=== PATIENT | male | born 1965 | race Caucasian/White ===

== ENCOUNTER 2018-10-10 12:18 | Inpatient (IN) | payer SELFPAY ==
[2018-10-10] MEDS ORDERED: Enoxaparin Sodium 60 MG/0.6 ML SYRINGE ONE (14:23)
[2018-10-10 14:36] LABS: CKMB 2.6 ng/mL (0-6.6)
--- NOTE | 2018-10-10 15:06 | NM ---
RADIONUCLIDE VENTILATION PERFUSION LUNG SCAN: HISTORY: Dyspnea. FINDINGS: Ventilation images show symmetric uptake without significant air trapping. Perfusion images show a p oor perfusion gradient. No segmental or subsegmental perfusion mismatches. IMPRESSION: Exam is low probability for clinically significant pulmonary embolus. POS: [facility]
[2018-10-10] MEDS ORDERED: hydrALAZINE 20 MG/ML VIAL SLOW IVP PRN (15:35)
[2018-10-10] MEDS ORDERED: Labetalol HCl 100 MG/20 ML VIAL SLOW IVP PRN (15:35)
[2018-10-10] MEDS ORDERED: Dextrose 5% in Water 1,000 ML IV PRN (15:35)
[2018-10-10] MEDS ORDERED: Dextrose 50% Abboject 50 ML SYRINGE SLOW IVP PRN (15:35)
[2018-10-10] MEDS ORDERED: Acetaminophen 325 MG TAB PO PRN (15:35)
[2018-10-10] MEDS ORDERED: Acetaminophen 650 MG Suppository PR PRN (15:35)
[2018-10-10] MEDS ORDERED: Enalaprilat Dihydrate 1.25 MG/ML VIAL SLOW IVP PRN (15:35)
[2018-10-10] MEDS ORDERED: Ondansetron PF 4 MG/2 ML Vial IVP PRN (15:35)
[2018-10-10 16:48] LABS: Syphilis Antibody Nonreactive (Nonreactive); Syphilis Antibody Index 0.04 S/CO (<1.00 Non-Reactive)
--- NOTE | 2018-10-10 16:56 | HP ---
REASON FOR ADMISSION: Possible CVA, new onset CHF exacerbation, demand ischemia. HISTORY OF PRESENTING ILLNESS: The patient gives history of having upper respiratory infection and started taking Z-Chaitanya from the of this month. He in fact traveled to [facility] with his friends for vacation for six days. They left on the , came back on the . This was an 8-hour journey. The patient had a layover in [place] and then on to [facility] from there. No complaints of chest pain or palpitation. The patient has had cough and shortness of breath from yesterday evening. The went got him Mucinex, which did not seem to help. Around 6:30 this morning, he could not really talk and was drooling. He was in fact walking fine and he ate well last night too per . Currently, the patient is moving all extremities and is ambulating in the room here. He has trouble talking. He is very hoarse. He has no altered sensorium on his tongue, inner cheek, or anywhere on his body. No complaints of prior cardiac workup. PAST MEDICAL AND SURGICAL HISTORY: Diabetes mellitus type 2, hypertension, tobacco abuse, alcohol abuse. No prior surgical history. CURRENT MEDICATIONS: 1. Glipizide 10 mg twice daily. 2. Metformin 1000 mg twice daily. 3. Lisinopril 10 mg daily. ALLERGIES: ALLERGIC TO PENICILLIN. PERSONAL HISTORY: Smokes one pack a day. The patient has come down on his alcohol, drinking from 8 to 9 beers a day to 6-pack a day now. Does not abuse drugs. Lives with his . He does construction work. FAMILY HISTORY: Mother is living and has history of hypothyroidism. Father of mesothelioma and its complications in his 70s. CODE STATUS: Full. POWER OF RAIL LAYER: His . REVIEW OF SYSTEMS: CONSTITUTIONAL: Negative for weight loss or gain, ability to conduct usual activities. SKIN: Negative for rash, itching. EYES: Negative for double vision, pain. ENT/MOUTH: Negative for nose bleeding, neck stiffness, pain, tenderness. CARDIOVASCULAR: Negative for palpitations, dyspnea on exertion, orthopnea. RESPIRATORY: Negative for shortness of breath, wheezing, cough, hemoptysis, fever or night sweats. GASTROINTESTINAL: Negative for poor appetite, abdominal pain, heartburn, nausea , vomiting, constipation, or diarrhea. GENITOURINARY: Negative for urgency, frequency, dysuria, nocturia. MUSCULOSKELETAL: Negative for pain, swelling. NEUROLOGIC/PSYCHIATRIC: Negative for anxiety, depression. ALLERGY/IMMUNOLOGIC: Negative for skin rash, bleeding tendency. PHYSICAL EXAMINATION: GENERAL: The patient is a 53-year-old male, who is currently not in any acute distress. VITAL SIGNS: Blood pressure 122/84, pulse 98 per minute, respiratory rate 18 per minute, saturating 99% on room air, and temperature 98.2 degrees Fahrenheit. NECK: Supple. No elevated JVD. EYES: Extraocular muscles intact. Pupils are reacting to light. Oral cavity, mucous membranes are dry. No exudates or congestion. CARDIOVASCULAR: S1 and S2 heard. Regular rhythm. RESPIRATORY: Air entry 1+ bilateral. Scattered rhonchi plus no rales or wheezes. ABDOMEN: Soft. Bowel sounds heard. No tenderness, rigidity, or guarding. EXTREMITIES: No peripheral edema or calf tenderness. VASCULAR: Peripheral pulses 1+ bilateral. No ischemic ulcerations or gangrene. CENTRAL NERVOUS SYSTEM: The patient has 7th cranial nerve palsy on the left. He also has deviation of his tongue. The patient has hoarseness. Motor system in all four extremities is intact with 5/5 strength. Reflexes are 2+ bilateral. Babinski is equivocal. Sensory system is grossly normal to touch and pinprick, both sides. Gait was normal with no ataxia. PSYCHIATRIC: No obvious hallucinations or delusions. LABORATORY DATA: EKG done shows normal sinus rhythm at 95 beats per minute. There is LBBB seen with LVH strain pattern. QRS duration is [address] angio of brain done showed no evidence of hemodynamically significant stenosis seen in the neck or the brain. V/Q scan showed low probability for PE. Chest x-ray done showed pulmonary vascular congestion. BNP is 2691. Troponin I 0.06, CK-MB 2.6, albumin 4.1, lipase 28, serum glucose 404, BUN 24, creatinine 1.5. Serum bicarb is 15. White count of 5, H and H 12 and 36, platelet count 222, MCV is 92 with 69% neutrophils. CLINICAL IMPRESSION AND PLAN: The patient will be admitted to stroke unit for possible brainstem stroke with cranial nerve palsies. He also has new onset congestive heart failure. The patient has never had prior cardiac workup. We will obtain echo with 2D Doppler for LV function. We will also place him on banana bag in view of his history of heavy alcohol abuse. He will be on rectal aspirin, Coreg, Lipitor. We will await speech therapist's clearance for oral diet. If the patient's MRI is normal, we will obtain ENT consultation to rule out vocal cord paralysis. Respiratory viral pathogen PCR will be obtained in view of the patient's recent travel and his intake of Z-Chaitanya prior to leaving [place] TSH screen along with lipid profile will be obtained in the morning. 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 We will consult Dr. Rao for Cardiology and Dr. Rodriguez, who is on-call for Neurology. I have given complete updates to the patient and his at bedside. Job ID: [id number] [facility]
[2018-10-10] MEDS ORDERED: Multivitamins, Adult 10 ML, Folic Acid 1 MG, Thiamine HCl 100 MG in Dextrose 5 %-0.45 %... IV SCH (18:00)
[2018-10-10] MEDS: Multivitamins, Adult 10 ML, Folic Acid 1 MG, Thiamine HCl 100 MG in Dextrose 5 %-0.45 %... IV SCH (18:00)
[2018-10-10 18:04] LABS: ANA Symphony (Qualitative) Negative (Negative); ANA Symphony (Quantitative) 0.1 Ratio (< 0.7 Negative); dsDNA IgG Antibody 1.1 IU/mL (<10 Negative)
[2018-10-10 18:53] LABS: Amphetamine Not Detected (NotDetected); Barbiturates Screen Not Detected (NotDetected); Benzodiazepine Screen Not Detected (NotDetected); Cocaine Metabolite Screen Not Detected (NotDetected); Medtox Control Line Valid? VALID (VALID); Medtox Reader # READER 4; Methadone Not Detected (NotDetected); Methamphetamine Not Detected (NotDetected); Opiate Screen Not Detected (NotDetected); Oxycodone Screen Not Detected (NotDetected); Phencyclidine (PCP) Not Detected (NotDetected); THC/Cannabinoid Screen Not Detected (NotDetected); Tricyclic Screen Not Detected (NotDetected)
[2018-10-10] MEDS: HumaLOG 300 UNITS/3 ML VIAL SC PRN (19:03)
[2018-10-10] MEDS: Atorvastatin Calcium 40 MG TAB PO SCH (21:06)
[2018-10-10] MEDS: Carvedilol 3.125 MG TAB PO SCH (21:06)
[2018-10-10] MEDS: Famotidine/PF 20 mg/2ml Vial SLOW IVP SCH (21:58)
--- NOTE | 2018-10-10 23:37 | CON ---
DATE OF CONSULTATION: 10/10/2018 TYPE OF CONSULTATION: Neurology CONSULTING PHYSICIAN: Hospitalist Service. IMPRESSION: 1. Probable lower brainstem stroke. 2. Diabetes. 3. Hypertension. 4. Aspirin failure. PLAN: 1. Add Plavix. 2. Low-dose statin. 3. Speech therapy to monitor his swallowing situation to determine whether a PEG tube is necessary. 4. Carotid ultrasound. 5. Echocardiogram. HOSPITAL COURSE: Mr. Damon is a 53-year-old man with a past history of diabetes and hypertension. He awoke with findings that he was having trouble speaking. He started having trouble handling his saliva and had to mop his mouth to keep from drooling. He denied any nausea, vomiting or vertigo. He did have some mild headache. He has not noticed any lateralized weakness or numbness. He came in and had a CT and CTA, both of which were unremarkable. LABORATORY STUDIES: Show a sedimentation rate of 29, glucose of 323, and RPR is nonreactive. Vital signs have otherwise been stable and afebrile. PAST MEDICAL HISTORY: As listed above. ALLERGIES: PENICILLIN. SOCIAL HISTORY: He quit smoking a couple of weeks ago. FAMILY HISTORY: Noncontributory. MEDICATION LIST: Reviewed. REVIEW OF SYSTEMS: No complaint of chest pain, shortness of breath, abdominal pain, lateralized weakness or numbness. PHYSICAL EXAMINATION: VITAL SIGNS: Blood pressure 127/89, pulse 96, respirations 16, temperature 97.9. HEENT: Pupils equal and reactive. Conjunctivae clear. Oropharynx clear. NECK: Supple. EXTREMITIES: No cyanosis. NEUROLOGIC: He is alert and cooperative. His speech was fluent with a markedly breath equality. His cranial nerve exam showed a flattening of left nasolabial fold. His tongue protruded to the left. His palate elevated weakly, but into the midline. Sensation in the face was equal. No nystagmus was noted. Motor exam showed good strength bilaterally. There is no fix or drift. Sensation was equal to touch. Plantar response was downgoing on the right and equivocal on the left. He can walk independently. IMAGING: EKG shows a left bundle-branch block. SUMMARY: This is a middle-aged man with an acute small vessel stroke in the brainstem. He failed aspirin. Therefore, I would advance his treatment as noted above. Hopefully, he will make a rapid recovery and not need a PEG tube. Job ID: [id number]
[2018-10-11] MEDS: HumaLOG 300 UNITS/3 ML VIAL SC PRN ×4 (02:23→18:39)
--- NOTE | 2018-10-11 04:19 | CON ---
DATE OF CONSULTATION: HISTORY OF PRESENT ILLNESS: Héctor Damon is a 53-year-old white male who over the last 2 to 3 weeks has been having cough and increased shortness of breath. He has taken a Z-Chaitanya, but continues to have cough and shortness of breath. He has had PND and orthopnea. He has had to sleep in a chair. He recently was on a flight from [place] to [facility]. At 06:30 this morning, he was having trouble talking and was drooling out of the left side of his mouth. He was seen in the emergency room in [place] and ultimately transferred here. He denies any chest discomfort. PAST MEDICAL HISTORY: Diabetes, hypertension, smoker, and ETOH abuse. OPERATIONS: None. CURRENT MEDICATIONS: 1. Glipizide 10 mg b.i.d. 2. Metformin 1000 mg b.i.d. 3. Lisinopril 10 mg daily. ALLERGIES: PENICILLIN. SOCIAL HISTORY: He smokes 1 pack per day, but he states that he quit last week. He drinks a 6 pack of beer per day, although he apparently in the past would drink 8 to 9 beers per day. He does construction work. FAMILY HISTORY: No family history of coronary artery disease. REVIEW OF SYSTEMS: A 12-point review of systems otherwise unremarkable except for the shortness of breath and neurological symptoms as described above. PHYSICAL EXAMINATION: VITAL SIGNS: Blood pressure 127/89, pulse of 96. HEENT: PERRL. NECK: Supple. CHEST: Clear. CARDIAC: S1 and S2 normal without any S3, S4, or murmurs. Carotid upstrokes normal without bruits. ABDOMEN: Normal bowel sounds without tenderness or organomegaly. EXTREMITIES: Revealed no clubbing, cyanosis, or edema. NEUROLOGICAL: The patient has left facial droop, but otherwise appears to have normal strength. SKIN: Warm and dry. LABORATORY DATA: EKG revealed sinus tachycardia with left atrial enlargement and left bundle branch block. Chest x-ray revealed increased pulmonary vascularity and small bilateral pleural effusions. Hemoglobin 12.4, hematocrit 36.7, white count 5700, platelets 222,000. Sodium 133, potassium 4.4, chloride 105, carbon dioxide 15, BUN 24, creatinine 1.50, glucose 404. Troponin I 0.070. BNP 2691.5. Urine drug screen is negative. V/Q scan was low probability for PE. IMPRESSION: 1. Probable cardiomyopathy with symptoms compatible with this as well as significantly elevated BNP and findings on chest x-ray of heart failure. 2. ETOH abuse. 3. Smoker. 4. Hypertension. 5. Diabetes. 6. Stroke. 7.Chronic kidney disease vs FREDI. PLAN: The patient will be started on carvedilol 3.125 b.i.d. He will continue to be diuresed. Echocardiogram will be performed to assess left ventricular function. He certainly may have coronary artery disease with multiple cardiac risk factors. Lipid profile will be obtained. I will continue to follow the patient with you. Job ID: [id number] [facility]
[2018-10-11 05:42] LABS: #Basophils 0.1 thou/uL (0.0-0.2); #Eosinphils 0.1 thou/uL (0.0-0.7); #Lymphocytes 1.3 thou/uL (1.20-3.40); #Monocytes 0.5 thou/uL (0.11-0.59); #Neutrophils 2.2 thou/uL (1.40-6.50); %Basophils 1.3 % (0.0-1.0); %Eosinophils 2.1 % (0.0-10.0); %Lymphocytes 31.8 % (21.0-51.0); %Monocytes 11.6 % (0.0-10.0); %Neutrophils 53.2 % (42.0-75.0); Hemoglobin 12.4 g/dL (14.0-18.0); Mean Corpuscular HGB CONC 34.2 g/dL (32.0-36.0); Mean Corpuscular Hemoglobin 31.9 pg (27.0-31.0); Mean Corpuscular Volume 93.3 fL (78.0-98.0); Mean Platelet Volume 8.4 fL (7.4-10.4); Platelet Count 233 thou/uL (130-400); RBC Distribution Width 11.7 % (11.5-14.5); Red Blood Cell (RBC) Count 3.87 mill/uL (4.70-6.10); White Blood Cell (WBC) Count 4.1 thou/uL (4.8-10.8)
[2018-10-11 06:02] LABS: Anion Gap 15 mmol/L (10-20); BUN (Urea Nitrogen) 24 mg/dL (8.4-25.7); Calc. Creatinine Clearance 39 mL/min (70-130); Calcium 9.7 mg/dL (7.8-10.44); Carbon Dioxide 21 mmol/L (22-29); Cardiac Risk 4.7 (Less than 4.5); Chloride 107 mmol/L (98-107); Cholesterol 188 mg/dl (< 200 Desired); Estimated GFR-MDRD 47; Glucose 231 mg/dL (70-105); HDL Cholesterol 40 mg/dL (>60 Neg Risk); LDL Cholesterol, Calculated 134 mg/dL; Potassium 4.1 mmol/L (3.5-5.1); Sodium 139 mmol/L (136-145); Triglycerides 70 mg/dL (Less than 150); Uric Acid 7.1 mg/dL (3.5-7.2)
[2018-10-11] MEDS: Furosemide 40 MG/4 ML VIAL SLOW IVP SCH ×2 (06:09→14:27)
[2018-10-11] MEDS: Carvedilol 3.125 MG TAB PO SCH ×2 (08:33→21:04)
[2018-10-11] MEDS: Famotidine/PF 20 mg/2ml Vial SLOW IVP SCH ×2 (08:33→21:03)
[2018-10-11] MEDS: Enoxaparin Sodium 40 MG/0.4 ML SYRINGE SC SCH (08:33)
[2018-10-11] MEDS: Aspirin 300 MG Suppository PR SCH (08:33)
--- NOTE | 2018-10-11 09:51 | MRI ---
MRI BRAIN WITHOUT CONTRAST: HISTORY: Speech difficulty, stroke. FINDINGS: There is small- to moderate-sized area of restricted diffusion in the right MCA territory consistent with acute infarction. No hemorrhage, midline shift, or abnormal extraaxial fluid collections are se en. The ventricular size is appropriate and the basilar cisterns are patent. There is fluid in the mastoid air cells. IMPRESSION: Small-moderate sized acute right middle cerebral artery infarction. POS: [facility]
--- NOTE | 2018-10-11 15:41 | RAD ---
MODIFIED BARIUM SWALLOW IN THE PRESENCE OF SPEECH THERAPIST: 10/11/18 HISTORY: Dysphagia, right MCA infarction. FINDINGS/IMPRESSION: There is karyn aspiration. Residua is seen in the vallecula and piriform sinuses. Please see recommendation of the speech therapist for further management. POS: [facility]
--- NOTE | 2018-10-11 16:02 | PDOC.PN ---
- Subjective Encounter Start Date: 10/11/18 Encounter Start Time: 10:30 Subjective: is able to talk some but has husky voice still -: no trouble breathing, still has facial droop -: no new weakness in extremities, is amb in room, at bedside - Objective Resuscitation Status - Order Detail: 10/10/18 15:28 Resuscitation Status Routine Resuscitation Status: FULL: Full Resuscitation MAR Reviewed: Yes Vital Signs & Weight: Vital Signs (12 hours) Temp Pulse Pulse Pulse Resp BP BP 10/11/18 15:53 98.2 F 92 16 10/11/18 12:00 97.7 F 91 20 10/11/18 11:12 85 16 10/11/18 09:30 95 95 119/79 106/70 10/11/18 08:45 97.5 F L 91 20 10/11/18 08:44 97 84 121/80 123/79 10/11/18 08:40 BP Pulse Ox 10/11/18 15:53 112/73 100 10/11/18 12:00 116/80 97 10/11/18 11:12 10/11/18 09:30 10/11/18 08:45 123/79 98 10/11/18 08:44 10/11/18 08:40 98 Weight Admit Weight 113 lb 1.6 oz Weight 108 lb 9.6 oz I&O: 10/10/18 10/11/18 10/12/18 06:59 06:59 06:59 Intake Total 799 Output Total 450 300 Balance 349 -300 Result Diagrams: 10/11/18 05:19 10/11/18 05:19 Additional Labs: Accuchecks 10/11/18 10/11/18 10/11/18 12:14 04:43 00:19 POC Glucose 254 H 221 H 222 H 10/10/18 18:16 POC Glucose 284 H Phys Exam - Physical Examination HEENT: PERRLA, moist MMs Neck: no JVD, supple Respiratory: no wheezing, no rales Cardiovascular: RRR, no significant murmur Gastrointestinal: soft, non-tender, positive bowel sounds Musculoskeletal: no edema, pulses present Neurological: moves all 4 limbs 7th nerve palsy, dysphagia, hoarseness, no other motor deficits Psychiatric: normal affect, A&O x 3 Dx/Plan (1) Acute CVA (cerebrovascular accident) Code(s): I63.9 - CEREBRAL INFARCTION, UNSPECIFIED Status: Acute (2) Hoarseness Status: Acute (3) CHF exacerbation Code(s): I50.9 - HEART FAILURE, UNSPECIFIED Status: Acute Qualifiers: Heart failure type: systolic Qualified Code(s): I50.23 - Acute on chronic systolic (congestive) heart failure Comment: ef of 15% (4) Cardiomyopathy Code(s): I42.9 - CARDIOMYOPATHY, UNSPECIFIED Status: Suspected Qualifiers: Cardiomyopathy type: unspecified Qualified Code(s): I42.9 - Cardiomyopathy , unspecified (5) Alcohol abuse Code(s): F10.10 - ALCOHOL ABUSE, UNCOMPLICATED Status: Chronic (6) Tobacco abuse Code(s): Z72.0 - TOBACCO USE Status: Chronic (7) Dyslipidemia Code(s): E78.5 - HYPERLIPIDEMIA, UNSPECIFIED Status: Acute (8) HTN (hypertension) Code(s): I10 - ESSENTIAL (PRIMARY) HYPERTENSION Status: Chronic Qualifiers: Hypertension type: essential hypertension Qualified Code(s): I10 - Essential (primary) hypertension (9) Dysphagia Code(s): R13.10 - DYSPHAGIA, UNSPECIFIED Status: Acute Qualifiers: Dysphagia type: unspecified Qualified Code(s): R13.10 - Dysphagia, unspecified (10) DM type 2 (diabetes mellitus, type 2) Status: Chronic Qualifiers: Diabetes mellitus telephone service adviser insulin use: without senior care use Diabetes mellitus complication status: with unspecified complications Qualified Code(s) : E11.8 - Type 2 diabetes mellitus with unspecified complications - Plan on aspirin rectal -: await ct neck and chest results -: MRI shows ac right mca infarct -: ef is very low on echo, will need further w/u in 8 weeks -: mod ba swallow showed aspiration, is npo for now, likely peg in am * . Review of Systems - Medications/Allergies Allergies/Adverse Reactions: Allergies Allergy/AdvReac Type Severity Reaction Status Date / Time Penicillins Allergy Verified 10/10/18 16:42 Medications: Current Medications Acetaminophen (Tylenol) 650 mg PO Q4H PRN PRN Reason: Headache/Fever/Mild Pain (1-3) Acetaminophen (Tylenol) 650 mg [place] Q4H PRN PRN Reason: Headache/Fever/Mild Pain (1-3) Albuterol/Ipratropium (Duoneb) 3 ml NEB [id number] [facility] Last Admin: 10/11/18 11:12 Dose: 3 ml Aspirin (Aspirin) [address] [facility] Last Admin: 10/11/18 08:33 Dose: 300 mg Atorvastatin Calcium (Lipitor) [address] [facility] Last Admin: 10/10/18 21:06 Dose: Not Given Carvedilol (Coreg) 3.[address] [facility] Last Admin: 10/11/18 08:33 Dose: 3.125 mg Dextrose/Water (Dextrose 50%) 25 gm SLOW IVP PRN PRN PRN Reason: Hypoglycemia Enalaprilat (Vasotec) 1.25 mg SLOW IVP Q6H PRN PRN Reason: BP > 220/110 Enoxaparin Sodium (Lovenox) [address] [facility] Last Admin: 10/11/18 08:33 Dose: 40 mg Famotidine (Pepcid) 20 [address]P Q12[address] [facility] Last Admin: 10/11/18 08:33 Dose: 20 mg Furosemide (Lasix) 40 mg SLOW IVP 0600,1400 [facility] Last Admin: 10/11/18 14:27 Dose: 40 mg Glucagon (Glucagon) 1 mg IM PRN PRN PRN Reason: Hypoglycemia Hydralazine HCl (Apresoline) 10 mg SLOW IVP Q4H PRN PRN Reason: BP > 220/110 Dextrose/Water (D5w) 1,000 mls @ 0 mls/hr IV .Q0M PRN PRN Reason: Hypoglycemia Multivitamins 10 ml/ Folic Acid 1 mg/ Thiamine HCl 100 mg / Dextrose/Sodium Chloride 1,011.2 mls @ 40 mls/hr IV 1800 [facility] Stop: 10/13/18 17:59 Last Admin: 10/10/18 18:00 Dose: 1,011.2 mls Levofloxacin 500 mg/ Device 100 mls @ 100 mls/hr IVPB Q24HR [facility] Last Admin: 10/10/18 18:00 Dose: 100 mls Insulin Human Lispro (Humalog) 0 units SC .MODERATE SLIDING SC PRN PRN Reason: Moderate Correctional Scale Last Admin: 10/11/18 12:33 Dose: 6 unit Labetalol HCl (Normodyne) 20 mg SLOW IVP Q1H PRN PRN Reason: BP > 220/110 Ondansetron HCl (Zofran) 4 mg IVP Q6H PRN PRN Reason: Nausea/Vomiting Sodium Chloride (Flush - Normal Saline) 10 ml IVF PRN PRN PRN Reason: Saline Flush Last Admin: 10/11/18 08:33 Dose: 10 ml
--- NOTE | 2018-10-11 16:41 | CT ---
POSTCONTRAST SOFT TISSUE NECK CT: 10/11/18 HISTORY: Vocal cord paralysis. Smoking history. COMPARISON: None. TECHNIQUE: Postcontrast soft tissue neck CT is performed in the axial plane. Reformatted images are submitted fo r interpretation. FINDINGS: The visualized brain parenchyma and orbits are unremarkable. Adequate aeration of the sinuses and mas toid air cells. Oral cavity is unremarkable. Midline fatty raphae of the tongue is preserved. Epiglot tis has a normal caliber. Pre-epiglottic fat is preserved. Symmetric attenuation of the submandibular and parotid glands. Thyroid gland is unremarkable. Symmetric attenuation of the sternocleidomastoid muscles. No evidence of lymphadenopathy by size crit eria. Great vessels of the neck, cervical spine, upper mediastinum and lung apices are unremarkable. There is symmetric appearance of the piriform sinuses. Additionally, The false and true vocal cords have ap propriate attenuation. IMPRESSION: 1. No CT evidence of a mass within the aerodigestive tract. 2. No evidence of lymphadenopathy by size criteria. POS: [facility]
--- NOTE | 2018-10-11 17:05 | CT ---
CHEST CT WITH CONTRAST: 10/11/18 HISTORY: Difficulty swallowing. Vocal cord paralysis. Evaluate for mediastinal mass. COMPARISON: None. TECHNIQUE: Postcontrast chest CT is performed in the axial plane. Coronal reformatted images are submitted for i nterpretation. FINDINGS: Trachea and central bronchi are patent. No masses or consolidation in the lung parenchyma. There is a trace left and a small right sided pleural effusion. Adjacent parenchymal changes may be due to scar or atelectasis. There is no pneumothorax. No mediastinal mass, lymphadenopathy or hematoma. Heart size is within normal limits. No pericardial effusion. There are coronary calcifications. The thoracic aorta and upper abdominal aorta has a don l caliber. No periaortic fat stranding. There is vicarious excretion of contrast into the gallbladder . The visualized upper solid organs and alimentary canal are unremarkable. No lytic or blastic lesions in the osseous structures. IMPRESSION: 1. No mediastinal mass or hematoma. 2. Small bilateral effusions with probable scar/atelectasis in the lung bases. POS: [facility]
[2018-10-11] MEDS: Multivitamins, Adult 10 ML, Folic Acid 1 MG, Thiamine HCl 100 MG in Dextrose 5 %-0.45 %... IV SCH (21:04)
[2018-10-11] MEDS: Atorvastatin Calcium 40 MG TAB PO SCH (21:04)
--- NOTE | 2018-10-12 01:06 | CON ---
DATE OF CONSULTATION: 10/11/2018 REASON FOR CONSULTATION: Dysphagia, abnormal swallowing study. CONSULTING PHYSICIAN: Salvatore Durham MD HISTORY OF PRESENT ILLNESS: The patient is a 53-year-old male with past medical history of diabetes, hypertension, alcohol and tobacco abuse, who initially presented with complaints of dysphagia and facial drooping concerning for acute cerebrovascular accident. The patient initially presented on October 10, 2018, with complaints of dysphagia characterized as his inability to enunciate his words as well as facial drooping resulting in drooling on that morning at 6:30 a.m. He denies any deficits of both the upper and lower extremities, but given his change in symptoms prompted evaluation in the ER. Upon evaluation in the ER, he subsequently underwent imaging of the brain, which showed a small moderate-sized acute right middle cerebral artery infarction consistent with cerebrovascular accident. He was admitted to the Stroke Unit for further evaluation with a bedside swallow study consistent with possible aspiration. He subsequently underwent a modified barium swallow on October 11, 2018, which showed karyn aspiration on the examination with increasing residuals seen within the valleculae and pyriform sinuses contributing to his karyn aspiration. At this time, the patient states that he is doing well with no other problems or events. Currently, denies any nausea, vomiting, fevers, chills, abdominal pain, weight loss, GI bleeding, diarrhea, constipation, or odynophagia. However, he does continue to have aphasia, mild sore throat, and difficulty swallowing, but does not manifest itself as increased coughing or gagging episodes. REVIEW OF SYSTEMS: A 10-category review of systems was obtained with all responses negative except for the pertinent positives as listed in the HPI. PAST MEDICAL HISTORY: As per HPI. PAST SURGICAL HISTORY: None. FAMILY HISTORY: Denies any GI malignancies. SOCIAL HISTORY: Smokes approximately 1 pack per day as well as drinking anywhere between 6 to 9 beers daily. Denies any illicit drug use. OUTPATIENT MEDICATIONS: Reviewed. ALLERGIES: PENICILLIN. PHYSICAL EXAMINATION: VITAL SIGNS: Temperature 98.2, pulse 96, blood pressure 112/73, respiratory rate 16, saturating 100% on room air. GENERAL: The patient is lying in bed, in no acute distress. Alert and oriented x4. HEENT: Neck is supple. No JVD or scleral icterus noted. Mild facial drooping was noted on the left with flattening of the nasolabial crease. CARDIOVASCULAR: Regular rate and rhythm with no discernible murmurs, gallops, or rubs. RESPIRATORY: Clear to auscultation bilaterally with no discernible wheezes or rales. ABDOMEN: Normoactive bowel sounds. Soft, nontender, and nondistended. EXTREMITIES: No cyanosis, clubbing, or edema. LABORATORY DATA: CBC with a white blood cell count of 4.1, hemoglobin 12.4, hematocrit 36.1, platelets 233. Chemistry with a sodium of 139, potassium 4.1, chloride 107, CO2 of 21, BUN 24, creatinine 1.56, glucose 231. IMAGING DATA: Modified barium swallow obtained on October 11, 2018, showed presence of gross/karyn aspiration with increased residual seen within the vallecula and pyriform sinuses consistent with oropharyngeal dysphagia. CT of the neck and soft tissues obtained on October 11, 2018, did not show any evidence of a mass within the aerodigestive tract and no evidence of lymphadenopathy. ASSESSMENT AND PLAN: The patient is a 53-year-old male with past medical history of diabetes, hypertension, alcohol and tobacco abuse, presenting with acute middle cerebral artery infarction and resultant dysphagia. 1. Dysphagia. The patient is presenting with the acute onset of left facial drooping and drooling with imaging findings consistent with middle cerebral artery cerebrovascular accident. Swallow study obtained at bedside yesterday showed possibility of aspiration with modified barium swallow study today showing gross aspiration of food consistent with oropharyngeal dysphagia. Given the evidence of karyn aspiration on the imaging studies, he is a good candidate for PEG tube placement. However, upon conferring with the patient and talking about alternatives, he would like to hold on PEG tube placement for at least the next 24 to 48 hours to see if he regains any additional swallowing function. He would like to participate in swallowing exercises in an attempt to strengthen the muscles for his swallowing. However, he also realizes that if he is unable to regain any significant ability within the next 24 to 48 hours, that a PEG tube would be recommended and he is amenable to this particular modality. RECOMMENDATIONS: 1. Would continue the patient n.p.o. status given the evidence of karyn aspiration on modified barium swallow study. 2. Would recommend PEG tube placement given evidence of karyn aspiration on modified barium swallow study. However, we will hold on this per patient's preference and potentially plan for PEG tube placement on Sunday or Sunday morning. 3. We will continue to follow. Please call with any questions. Job ID: [id number]
[2018-10-12] MEDS: HumaLOG 300 UNITS/3 ML VIAL SC PRN ×3 (03:32→17:44)
[2018-10-12] MEDS: Furosemide 40 MG/4 ML VIAL SLOW IVP SCH (06:26)
[2018-10-12 07:20] LABS: Chloride 106 mmol/L (98-107); Potassium 4.1 mmol/L (3.5-5.1); Sodium 141 mmol/L (136-145)
[2018-10-12 07:21] LABS: Calcium 9.8 mg/dL (7.8-10.44); Glucose 242 mg/dL (70-105)
[2018-10-12 07:23] LABS: Carbon Dioxide 18 mmol/L (22-29)
[2018-10-12 07:24] LABS: Calc. Creatinine Clearance 27 mL/min (70-130); Estimated GFR-MDRD 32
[2018-10-12 07:25] LABS: BUN (Urea Nitrogen) 32 mg/dL (8.4-25.7)
[2018-10-12] MEDS: Carvedilol 3.125 MG TAB PO SCH ×2 (08:44→21:39)
[2018-10-12] MEDS: Aspirin 300 MG Suppository PR SCH (08:44)
[2018-10-12] MEDS: Famotidine/PF 20 mg/2ml Vial SLOW IVP SCH ×2 (08:44→21:38)
[2018-10-12] MEDS: Enoxaparin Sodium 40 MG/0.4 ML SYRINGE SC SCH (08:44)
[2018-10-12] MEDS: Insulin Glargine 10 UNITS in Pre-Filled Syringe 1 EACH SC SCH (08:45)
[2018-10-12 10:48] LABS: Anion Gap 21 mmol/L (10-20)
--- NOTE | 2018-10-12 11:21 | PDOC.PN ---
- Subjective Encounter Start Date: 10/12/18 Encounter Start Time: 08:40 Subjective: no new complaints -: is ambulating, no sob -: is doing speech exercises, at bedside - Objective Resuscitation Status - Order Detail: 10/10/18 15:28 Resuscitation Status Routine Resuscitation Status: FULL: Full Resuscitation MAR Reviewed: Yes Vital Signs & Weight: Vital Signs (12 hours) Temp Pulse Pulse Pulse Resp BP BP 10/12/18 09:32 100 99 103/69 109/75 10/12/18 07:50 10/12/18 07:33 97.7 F 100 14 10/12/18 04:35 98.6 F 98 20 10/12/18 02:00 98.1 F 96 20 10/11/18 23:43 BP Pulse Ox Pulse Ox Pulse Ox 10/12/18 09:32 96 99 10/12/18 07:50 97 10/12/18 07:33 118/76 100 10/12/18 04:35 105/66 99 10/12/18 02:00 119/73 98 10/11/18 23:43 97 Weight Admit Weight 113 lb 1.6 oz Weight 102 lb 3.2 oz I&O: 10/11/18 10/12/18 10/13/18 06:59 06:59 06:59 Intake Total 799 1030 Output Total 450 500 350 Balance 349 530 -350 Result Diagrams: 10/11/18 05:19 10/12/18 06:41 Additional Labs: Accuchecks 10/12/18 10/12/18 10/11/18 05:52 03:11 18:34 POC Glucose 238 H 292 H 206 H 10/11/18 10/11/18 16:16 12:14 POC Glucose 169 H 254 H Phys Exam - Physical Examination HEENT: PERRLA, moist MMs Neck: no JVD, supple Respiratory: no wheezing, no rales Cardiovascular: RRR, no significant murmur Gastrointestinal: soft, non-tender, positive bowel sounds Musculoskeletal: no edema, pulses present Neurological: moves all 4 limbs 7th nerve palsy, dysphagia with likely involvement of pharyngeal muscles Psychiatric: normal affect, A&O x 3 Dx/Plan (1) Acute CVA (cerebrovascular accident) Code(s): I63.9 - CEREBRAL INFARCTION, UNSPECIFIED Status: Acute (2) Hoarseness Status: Acute (3) CHF exacerbation Code(s): I50.9 - HEART FAILURE, UNSPECIFIED Status: Acute Qualifiers: Heart failure type: systolic Qualified Code(s): I50.23 - Acute on chronic systolic (congestive) heart failure Comment: ef of 15% (4) Cardiomyopathy Code(s): I42.9 - CARDIOMYOPATHY, UNSPECIFIED Status: Suspected Qualifiers: Cardiomyopathy type: unspecified Qualified Code(s): I42.9 - Cardiomyopathy , unspecified (5) Alcohol abuse Code(s): F10.10 - ALCOHOL ABUSE, UNCOMPLICATED Status: Chronic (6) Tobacco abuse Code(s): Z72.0 - TOBACCO USE Status: Chronic (7) Dyslipidemia Code(s): E78.5 - HYPERLIPIDEMIA, UNSPECIFIED Status: Acute (8) HTN (hypertension) Code(s): I10 - ESSENTIAL (PRIMARY) HYPERTENSION Status: Chronic Qualifiers: Hypertension type: essential hypertension Qualified Code(s): I10 - Essential (primary) hypertension (9) Dysphagia Code(s): R13.10 - DYSPHAGIA, UNSPECIFIED Status: Acute Qualifiers: Dysphagia type: unspecified Qualified Code(s): R13.10 - Dysphagia, unspecified (10) DM type 2 (diabetes mellitus, type 2) Status: Chronic Qualifiers: Diabetes mellitus shelter insulin use: without long distance operator use Diabetes mellitus complication status: with unspecified complications Qualified Code(s) : E11.8 - Type 2 diabetes mellitus with unspecified complications (11) FREDI (acute kidney injury) Code(s): N17.9 - ACUTE KIDNEY FAILURE, UNSPECIFIED Status: Acute Comment: sec to diuresis on top of likely ckd2-3 - Plan discussed extensively with pt and at bedside -: they want to try and see if his swallowing improves in next 24-36hrs -: awaiting zoll rep to come talk to family and see if they can afford life ve -: -st, will increase iv fluids, dc lasix due to fredi -: peg either linda or sunday per patients wishes * . He will need to apply for health insurance now before the enrollment ends for next year, d/w patient and . Oral meds for heart failure when he can swallow/after peg. Review of Systems - Medications/Allergies Allergies/Adverse Reactions: Allergies Allergy/AdvReac Type Severity Reaction Status Date / Time Penicillins Allergy Verified 10/10/18 16:42 Medications: Current Medications Acetaminophen (Tylenol) 650 mg PO Q4H PRN PRN Reason: Headache/Fever/Mild Pain (1-3) Acetaminophen (Tylenol) 650 mg AR Q4H PRN PRN Reason: Headache/Fever/Mild Pain (1-3) Albuterol/Ipratropium (Duoneb) 3 ml NEB [id number] [facility] Last Admin: 10/12/18 09:27 Dose: Not Given Aspirin (Aspirin) 300 mg AR DAILY [facility] Last Admin: 10/12/18 08:44 Dose: 300 mg Atorvastatin Calcium (Lipitor) 40 mg PO HS [facility] Last Admin: 10/11/18 21:04 Dose: Not Given Carvedilol (Coreg) 3.125 mg PO BID [facility] Last Admin: 10/12/18 08:44 Dose: 3.125 mg Dextrose/Water (Dextrose 50%) 25 gm SLOW IVP PRN PRN PRN Reason: Hypoglycemia Enalaprilat (Vasotec) 1.25 mg SLOW IVP Q6H PRN PRN Reason: BP > 220/110 Enoxaparin Sodium (Lovenox) 40 mg SC 0900 [facility] Last Admin: 10/12/18 08:44 Dose: 40 mg Famotidine (Pepcid) 20 mg SLOW IVP Q12HR [facility] Last Admin: 10/12/18 08:44 Dose: 20 mg Glucagon (Glucagon) 1 mg IM PRN PRN PRN Reason: Hypoglycemia Hydralazine HCl (Apresoline) 10 mg SLOW IVP Q4H PRN PRN Reason: BP > 220/110 Dextrose/Water (D5w) 1,000 mls @ 0 mls/hr IV .Q0M PRN PRN Reason: Hypoglycemia Multivitamins 10 ml/ Folic Acid 1 mg/ Thiamine HCl 100 mg / Dextrose/Sodium Chloride 1,011.2 mls @ 40 mls/hr IV 1800 [facility] Stop: 10/13/18 17:59 Last Admin: 10/11/18 21:04 Dose: 1,011.2 mls Insulin Glargine 10 units/ (Miscellaneous Medication) 0.1 mls @ 0 mls/hr SC QAM [facility] Last Admin: 10/12/18 08:45 Dose: 0.1 mls Insulin Human Lispro (Humalog) 0 units SC .MODERATE SLIDING SC PRN PRN Reason: Moderate Correctional Scale Last Admin: 10/12/18 06:19 Dose: 4 unit Labetalol HCl (Normodyne) 20 mg SLOW IVP Q1H PRN PRN Reason: BP > 220/110 Ondansetron HCl (Zofran) 4 mg IVP Q6H PRN PRN Reason: Nausea/Vomiting Sodium Chloride (Flush - Normal Saline) 10 ml IVF PRN PRN PRN Reason: Saline Flush Last Admin: 10/11/18 08:33 Dose: 10 ml
--- NOTE | 2018-10-12 13:58 | EKG ---
Test Reason : SOB, STROKE SYMPTOMS Blood Pressure : / mmHG Vent. Rate : 095 BPM Atrial Rate : 095 BPM P-R Int : 118 ms QRS Dur : 136 ms QT Int : 400 ms P-R-T Axes : 062 132 088 degrees QTc Int : 502 ms Normal sinus rhythm Possible Left atrial enlargement Non-specific intra-ventricular conduction block Cannot rule out Anteroseptal infarct , age undetermined Abnormal ECG Confirmed by AYO SANTIAGO D.O. ([id number]), assistant editor LYUBOV STARR ([id number]) on 10/12/2018 1:57:50 PM Referred By: RD Confirmed By:AYO SANTIAGO D.O.
[2018-10-12] MEDS ORDERED: Multivitamins, Adult 10 ML, Folic Acid 1 MG, Thiamine HCl 100 MG in Dextrose 5 %-0.45 %... IV SCH (18:00)
--- NOTE | 2018-10-12 19:37 | PRG ---
DATE OF SERVICE: 10/12/2018 REASON FOR CONSULTATION: Dysphagia, recent cerebrovascular accident. SUBJECTIVE: The patient states that he did well today with no acute events or problems overnight. He continues to have significant dysphagia with only minimal tolerance of ice chips. Upon conferring with the speech pathologist today, he knows that his swallowing may not come back immediately and will most likely come back progressively over time if at all. At this time, he would like to proceed with EGD with percutaneous gastrostomy tube placement and is aware of the risks and benefits of the procedure. Currently, he denies any nausea, vomiting, fevers, chills, abdominal pain, GI bleeding, diarrhea, or constipation. OBJECTIVE: VITAL SIGNS: Temperature 97.4, pulse 87, blood pressure 112/75, respiratory rate 16, saturating 97% on room air. GENERAL: The patient was lying in bed, in no acute distress. Alert and oriented x4. CARDIOVASCULAR: Regular rate and rhythm. RESPIRATORY: Clear to auscultation bilaterally. ABDOMEN: Normoactive bowel sounds. Soft, nontender, nondistended. EXTREMITIES: No cyanosis, clubbing, or edema. LABORATORY DATA: Chemistry with a sodium of 141, potassium 4.1, chloride 106, CO2 of 18, BUN 32, creatinine 2.16, and glucose 242. IMAGING DATA: No current GI imaging is available for review. ASSESSMENT AND PLAN: The patient is a 53-year-old male with past medical history of diabetes, hypertension, alcohol, and tobacco abuse, presenting with acute middle cerebral artery infarction and resultant dysphagia. Dysphagia. The patient is presenting with acute onset of left facial drooping and drooling with imaging findings consistent with a middle cerebral artery cerebrovascular accident. The patient underwent both bedside swallow studies as well as a modified barium swallow study, both of which were consistent with gross aspiration. Discussion of PEG tube was initiated yesterday, which the patient elected to proceed with the procedure given optimism towards regain of function today. However, upon talking with the patient more as well as speaking with the speech pathologist, he understands that his dysphagia may not improve dramatically, but may improve progressively over time at which point the patient does need nutritional supplementation and is amenable to the placement of a PEG tube at this time. RECOMMENDATIONS: 1. Would continue the patient on n.p.o. status given the evidence of karyn aspiration on the modified barium swallow study as well as in preparation for the procedure tomorrow. 2. We will proceed with EGD with PEG tube placement tomorrow morning. 3. Would consult Dietary Services for tube feeding recommendations in preparation for the PEG tube placement. We will continue to follow. Please call with any questions. Job ID: [id number]
[2018-10-12] MEDS: Atorvastatin Calcium 40 MG TAB PO SCH (21:38)
[2018-10-13] MEDS: HumaLOG 300 UNITS/3 ML VIAL SC PRN (06:04)
[2018-10-13 06:19] LABS: Anion Gap 16 mmol/L (10-20); BUN (Urea Nitrogen) 34 mg/dL (8.4-25.7); Calc. Creatinine Clearance 31 mL/min (70-130); Calcium 9.5 mg/dL (7.8-10.44); Carbon Dioxide 19 mmol/L (22-29); Chloride 107 mmol/L (98-107); Estimated GFR-MDRD 39; Glucose 221 mg/dL (70-105); Potassium 3.8 mmol/L (3.5-5.1); Sodium 138 mmol/L (136-145)
[2018-10-13] MEDS: Insulin Glargine 10 UNITS in Pre-Filled Syringe 1 EACH SC SCH (08:14)
[2018-10-13] MEDS: Famotidine/PF 20 mg/2ml Vial SLOW IVP SCH ×2 (08:15→20:40)
[2018-10-13] MEDS: Aspirin 300 MG Suppository PR SCH (08:27)
[2018-10-13] MEDS: Carvedilol 3.125 MG TAB PO SCH (08:27)
[2018-10-13] MEDS ORDERED: Enoxaparin Sodium 80 MG/0.8 ML SYRINGE SC SCH (09:00)
[2018-10-13] MEDS ORDERED: Levofloxacin 500 mg/D5W 100 ml Premix Bag ONE (09:02)
[2018-10-13] MEDS ORDERED: KETAMINE 100 MG/ML (5ML VIAL) ONE (09:07)
[2018-10-13] MEDS ORDERED: PROPOFOL 200 MG/20 ML VIAL ONE (09:59)
--- NOTE | 2018-10-13 11:06 | OP ---
DATE OF PROCEDURE: 10/13/2018 PROCEDURES PERFORMED: Esophagogastroduodenoscopy with percutaneous gastrostomy tube placement. INDICATION FOR PROCEDURE: Dysphagia, moderate protein calorie malnutrition. DESCRIPTION OF PROCEDURE: After the risks and benefits of the procedure were explained to the patient including risks of bleeding, infection, perforation, reactions to anesthesia, aspiration and/or pain, informed consent was obtained. The patient was then taken to the endoscopy suite, where deep sedation was administered via propofol and anesthesia support. Once adequate sedation was achieved, the standard gastroscope was introduced into the mouth with intubation of the esophagus, stomach, and proximal small intestine with the findings listed below. Once the initial examination was complete, the camera was then maneuvered into the body of the stomach and using one-to-one compression and transillumination, the site for the percutaneous gastrostomy tube was ascertained. Once adequate one-to-one compression and transillumination were achieved, using a finder needle or aspiration needle, 1% lidocaine was instilled in a wheel pattern underneath the lining of the skin. The needle was then directed perpendicular to the skin and advanced into the stomach with back pressure on the needle as it was advanced. Once the needle was secured in the stomach, the needle was then slowly withdrawn with installation of the remainder of the lidocaine along the tract to achieve adequate local anesthesia. Then using a scalpel, a 1 cm vertical incision was made in the skin at the site of the prior wheel pattern. Then, using an aspiration needle or finder needle, it was advanced along the tract into the stomach. Once in the stomach, a guidewire was advanced through that needle's catheter and retrieved on the other side with a snare. The guidewire was then advanced back through the esophagus to the mouth, where upon the guidewire, the percutaneous gastrostomy tube was affixed. Once adequately secured and using a push method, the guidewire was then retracted through the skin with advancement of the percutaneous gastrostomy tube through the anterior wall of the stomach and through the anterior abdominal wall. The percutaneous gastrostomy tube was then affixed with the external bumper and cut the length with affixment of the adapter on top. Repeat upper endoscopy confirmed adequate placement of the percutaneous gastrostomy tube in the stomach. All equipment was then removed from the patient. The procedure terminated, with the patient transferred to PACU in satisfactory condition. FINDINGS: Esophagus: Normal-appearing mucosa was seen in the proximal, mid, and distal esophagus. There was no evidence of erosions, ulcerations, mass, lesions, or active/recent bleeding. Stomach: Normal-appearing mucosa was seen in the gastric cardia, fundus, body, along the greater curvature, antrum, and incisura. There was no evidence of erosions, ulcerations, mass, lesions, or active/recent bleeding. The percutaneous gastrostomy tube was advanced in place via the procedure description as above. Duodenum: Normal-appearing mucosa was seen in both the duodenal bulb and second portion of the duodenum. There was no evidence of erosions, ulcerations, mass, lesions, or active/recent bleeding. IMPRESSION: 1. Normal upper endoscopy. 2. Successful placement of a [employer] 20-Prydeinig percutaneous gastrostomy tube. RECOMMENDATIONS: 1. We will transfer the patient back to Stroke Unit for further management. 2. Would hold on any tube feeds for the next 6 hours, at which point, if no complication has been detected from the procedure itself, could start tube feeds and advance it per dietitian protocol. 3. We will consult Dietitian Services for recommendations regarding tube feeds. 4. Would maintain standard care practices for the percutaneous gastrostomy tube (including rotating the tube 720 degrees daily, installation of 60 mL of water both before and after tube feeds, can wash the wound with running soap and water, but would avoid baths and swimming for the next six weeks, and would avoid placing any objects between the external bump and the skin including gauze). We will continue to follow. Please call with any questions. Job ID: [id number]
[2018-10-13] MEDS ORDERED: Carvedilol 3.125 MG TAB PO SCH (11:20)
[2018-10-13] MEDS ORDERED: Carvedilol 6.25 MG TAB PO SCH (11:45)
--- NOTE | 2018-10-13 12:52 | PDOC.PN ---
- Subjective Encounter Start Date: 10/13/18 Encounter Start Time: 10:45 Subjective: is post peg placement, a bit drowsy -: at bedside - Objective Resuscitation Status - Order Detail: 10/10/18 15:28 Resuscitation Status Routine Resuscitation Status: FULL: Full Resuscitation MAR Reviewed: Yes Vital Signs & Weight: Vital Signs (12 hours) Temp Pulse Resp BP Pulse Ox 10/13/18 11:48 97.4 F L 94 14 135/98 H 99 10/13/18 11:03 18 124/90 99 10/13/18 10:30 97.9 F 79 18 125/93 H 99 10/13/18 08:15 97 10/13/18 07:36 97.7 F 87 16 104/71 97 10/13/18 03:32 98.1 F 84 20 110/70 99 Weight Admit Weight 113 lb 1.6 oz Weight 115 lb 14.4 oz I&O: 10/12/18 10/13/18 10/14/18 06:59 06:59 06:59 Intake Total 1030 1355 Output Total 500 1050 Balance 530 305 Result Diagrams: 10/11/18 05:19 10/13/18 06:02 Additional Labs: Accuchecks 10/13/18 10/13/18 10/12/18 10:50 05:52 20:29 POC Glucose 169 H 234 H 136 H 10/12/18 17:12 POC Glucose 249 H Phys Exam - Physical Examination HEENT: PERRLA, moist MMs Neck: no JVD, supple Respiratory: no wheezing, no rales Cardiovascular: RRR, no significant murmur Gastrointestinal: soft, non-tender, positive bowel sounds peg+ Musculoskeletal: no edema, pulses present Neurological: moves all 4 limbs dysphagia, facial palsy with pharyngeal/laryngeal musculature involvement Dx/Plan (1) Acute CVA (cerebrovascular accident) Code(s): I63.9 - CEREBRAL INFARCTION, UNSPECIFIED Status: Acute (2) Hoarseness Status: Acute (3) CHF exacerbation Code(s): I50.9 - HEART FAILURE, UNSPECIFIED Status: Acute Qualifiers: Heart failure type: systolic Qualified Code(s): I50.23 - Acute on chronic systolic (congestive) heart failure Comment: ef of 15% (4) Cardiomyopathy Code(s): I42.9 - CARDIOMYOPATHY, UNSPECIFIED Status: Suspected Qualifiers: Cardiomyopathy type: unspecified Qualified Code(s): I42.9 - Cardiomyopathy , unspecified (5) Alcohol abuse Code(s): F10.10 - ALCOHOL ABUSE, UNCOMPLICATED Status: Chronic (6) Tobacco abuse Code(s): Z72.0 - TOBACCO USE Status: Chronic (7) Dyslipidemia Code(s): E78.5 - HYPERLIPIDEMIA, UNSPECIFIED Status: Acute (8) HTN (hypertension) Code(s): I10 - ESSENTIAL (PRIMARY) HYPERTENSION Status: Chronic Qualifiers: Hypertension type: essential hypertension Qualified Code(s): I10 - Essential (primary) hypertension (9) Dysphagia Code(s): R13.10 - DYSPHAGIA, UNSPECIFIED Status: Acute Qualifiers: Dysphagia type: unspecified Qualified Code(s): R13.10 - Dysphagia, unspecified (10) DM type 2 (diabetes mellitus, type 2) Status: Chronic Qualifiers: Diabetes mellitus buttermaker continuous churn insulin use: without group home use Diabetes mellitus complication status: with unspecified complications Qualified Code(s) : E11.8 - Type 2 diabetes mellitus with unspecified complications (11) FREDI (acute kidney injury) Code(s): N17.9 - ACUTE KIDNEY FAILURE, UNSPECIFIED Status: Acute Comment: sec to diuresis on top of likely ckd2-3 - Plan iv gentle hydration for fredi -: asp from am via peg, start coreg from evening via peg -: d/w at bedside -: will need lifevest, to order it in am per -: glucernal feeds, continue lantus for now, no remington/arb's due to fredi * . Review of Systems - Medications/Allergies Allergies/Adverse Reactions: Allergies Allergy/AdvReac Type Severity Reaction Status Date / Time Penicillins Allergy Verified 10/10/18 16:42 Medications: Current Medications Acetaminophen (Tylenol) 650 mg PO Q4H PRN PRN Reason: Headache/Fever/Mild Pain (1-3) Acetaminophen (Tylenol) 650 mg MS Q4H PRN PRN Reason: Headache/Fever/Mild Pain (1-3) Albuterol/Ipratropium (Duoneb) 3 ml NEB Q4H PRN PRN Reason: Dyspnea/Wheezing/SOB Aspirin (Aspirin) 300 mg MS DAILY [facility] Last Admin: 10/13/18 08:27 Dose: Not Given Atorvastatin Calcium (Lipitor) 40 mg PO HS [facility] Last Admin: 10/12/18 21:38 Dose: Not Given Carvedilol (Coreg) 6.25 mg PO NOW [facility] Stop: 10/13/18 13:00 Last Admin: 10/13/18 12:33 Dose: Not Given Carvedilol (Coreg) 6.25 mg PO BID [facility] Dextrose/Water (Dextrose 50%) 25 gm SLOW IVP PRN PRN PRN Reason: Hypoglycemia Enalaprilat (Vasotec) 1.25 mg SLOW IVP Q6H PRN PRN Reason: BP > 220/110 Enoxaparin Sodium (Lovenox) 40 mg SC 0900 [facility] Famotidine (Pepcid) 20 mg SLOW IVP Q12HR [facility] Last Admin: 10/13/18 08:15 Dose: 20 mg Glucagon (Glucagon) 1 mg IM PRN PRN PRN Reason: Hypoglycemia Hydralazine HCl (Apresoline) 10 mg SLOW IVP Q4H PRN PRN Reason: BP > 220/110 Dextrose/Water (D5w) 1,000 mls @ 0 mls/hr IV .Q0M PRN PRN Reason: Hypoglycemia Insulin Glargine 10 units/ (Miscellaneous Medication) 0.1 mls @ 0 mls/hr SC QAM [facility] Last Admin: 10/13/18 08:14 Dose: 0.1 mls Lactated Ringer's (Lactated Ringer's) 1,000 mls @ 70 mls/hr IV .[id number] [facility] Insulin Human Lispro (Humalog) 0 units SC .MODERATE SLIDING SC PRN PRN Reason: Moderate Correctional Scale Last Admin: 10/13/18 06:04 Dose: 4 unit Labetalol HCl (Normodyne) 20 mg SLOW IVP Q1H PRN PRN Reason: BP > 220/110 Ondansetron HCl (Zofran) 4 mg IVP Q6H PRN PRN Reason: Nausea/Vomiting Sodium Chloride (Flush - Normal Saline) 10 ml IVF PRN PRN PRN Reason: Saline Flush Last Admin: 10/11/18 08:33 Dose: 10 ml
[2018-10-13] MEDS: Lactated Ringer's 1,000 ML IV SCH (14:34)
[2018-10-13] MEDS ORDERED: Pancrelipase DR 12000 1 CAP FS PRN (17:34)
[2018-10-13] MEDS ORDERED: Sodium Bicarbonate Tab 325 MG TAB PER TUBE PRN (17:34)
[2018-10-13] MEDS: Carvedilol 6.25 MG TAB PO SCH (20:26)
[2018-10-13] MEDS: Atorvastatin Calcium 40 MG TAB PO SCH (20:26)
[2018-10-14] MEDS: HumaLOG 300 UNITS/3 ML VIAL SC PRN ×4 (00:24→18:52)
[2018-10-14] MEDS: Lactated Ringer's 1,000 ML IV SCH (04:51)
[2018-10-14 08:20] LABS: Anion Gap 12 mmol/L (10-20); BUN (Urea Nitrogen) 29 mg/dL (8.4-25.7); Calc. Creatinine Clearance 37 mL/min (70-130); Calcium 9.1 mg/dL (7.8-10.44); Carbon Dioxide 20 mmol/L (22-29); Chloride 105 mmol/L (98-107); Estimated GFR-MDRD 44; Glucose 357 mg/dL (70-105); Potassium 3.8 mmol/L (3.5-5.1); Sodium 133 mmol/L (136-145)
[2018-10-14] MEDS: Enoxaparin Sodium 40 MG/0.4 ML SYRINGE SC SCH (09:02)
[2018-10-14] MEDS: Pantoprazole 40 MG GRANULES PACKET PER TUBE SCH (09:02)
[2018-10-14] MEDS: Carvedilol 6.25 MG TAB PO SCH ×2 (09:02→20:59)
[2018-10-14] MEDS: Insulin Glargine 10 UNITS in Pre-Filled Syringe 1 EACH SC SCH (09:05)
--- NOTE | 2018-10-14 12:16 | PDOC.PN ---
- Subjective Encounter Start Date: 10/14/18 Encounter Start Time: 09:30 Subjective: awake and oriented, is communicating better -: has pain over peg insertion site - Objective Resuscitation Status - Order Detail: 10/10/18 15:28 Resuscitation Status Routine Resuscitation Status: FULL: Full Resuscitation MAR Reviewed: Yes Vital Signs & Weight: Vital Signs (12 hours) Temp Pulse Resp BP BP Pulse Ox 10/14/18 09:02 125/88 10/14/18 08:59 98 10/14/18 08:00 99.3 F 95 20 125/88 98 10/14/18 04:00 98.3 F 92 19 104/66 98 Weight Admit Weight 113 lb 1.6 oz Weight 112 lb 6.4 oz I&O: 10/13/18 10/14/18 10/15/18 06:59 06:59 06:59 Intake Total 1355 1260 230 Output Total 1050 Balance 305 1260 230 Result Diagrams: 10/11/18 05:19 10/14/18 07:48 Additional Labs: Accuchecks 10/14/18 10/14/18 10/13/18 05:59 00:09 16:55 POC Glucose 365 H 332 H 127 H Phys Exam - Physical Examination HEENT: PERRLA, moist MMs Neck: no JVD, supple Respiratory: no wheezing, no rales Cardiovascular: RRR, no significant murmur Gastrointestinal: soft, no distention, positive bowel sounds peg+ Musculoskeletal: no edema, pulses present aphasia, dysphagia Psychiatric: normal affect, A&O x 3 Dx/Plan (1) Acute CVA (cerebrovascular accident) Code(s): I63.9 - CEREBRAL INFARCTION, UNSPECIFIED Status: Acute (2) Hoarseness Status: Acute (3) CHF exacerbation Code(s): I50.9 - HEART FAILURE, UNSPECIFIED Status: Acute Qualifiers: Heart failure type: systolic Qualified Code(s): I50.23 - Acute on chronic systolic (congestive) heart failure Comment: ef of 15% (4) Cardiomyopathy Code(s): I42.9 - CARDIOMYOPATHY, UNSPECIFIED Status: Suspected Qualifiers: Cardiomyopathy type: unspecified Qualified Code(s): I42.9 - Cardiomyopathy , unspecified (5) Alcohol abuse Code(s): F10.10 - ALCOHOL ABUSE, UNCOMPLICATED Status: Chronic (6) Tobacco abuse Code(s): Z72.0 - TOBACCO USE Status: Chronic (7) Dyslipidemia Code(s): E78.5 - HYPERLIPIDEMIA, UNSPECIFIED Status: Acute (8) HTN (hypertension) Code(s): I10 - ESSENTIAL (PRIMARY) HYPERTENSION Status: Chronic Qualifiers: Hypertension type: essential hypertension Qualified Code(s): I10 - Essential (primary) hypertension (9) Dysphagia Code(s): R13.10 - DYSPHAGIA, UNSPECIFIED Status: Acute Qualifiers: Dysphagia type: unspecified Qualified Code(s): R13.10 - Dysphagia, unspecified (10) DM type 2 (diabetes mellitus, type 2) Status: Chronic Qualifiers: Diabetes mellitus computer terminal operator insulin use: without computer terminal operator use Diabetes mellitus complication status: with unspecified complications Qualified Code(s) : E11.8 - Type 2 diabetes mellitus with unspecified complications (11) FREDI (acute kidney injury) Code(s): N17.9 - ACUTE KIDNEY FAILURE, UNSPECIFIED Status: Acute Comment: sec to diuresis on top of 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 Review of Systems - Medications/Allergies Allergies/Adverse Reactions: Allergies Allergy/AdvReac Type Severity Reaction Status Date / Time Penicillins Allergy Verified 10/10/18 16:42 Medications: Current Medications Acetaminophen (Tylenol) 650 mg PO Q4H PRN PRN Reason: Headache/Fever/Mild Pain (1-3) Last Admin: 10/14/18 09:17 Dose: 650 mg Acetaminophen (Tylenol) 650 mg MT Q4H PRN PRN Reason: Headache/Fever/Mild Pain (1-3) Albuterol/Ipratropium (Duoneb) 3 ml NEB Q4H PRN PRN Reason: Dyspnea/Wheezing/SOB Lipase/Protease/Amylase (Bhupinder Cordero [id number]) 1 cap FS .PER PROTOCOL PRN PRN Reason: TUBE OCCLUSION PROTOCOL Aspirin (Aspirin Chewable) 81 mg PO DAILY [facility] Last Admin: 10/14/18 09:02 Dose: 81 mg Atorvastatin Calcium (Lipitor) 40 mg PO HS [facility] Last Admin: 10/13/18 20:26 Dose: 40 mg Carvedilol (Coreg) 6.25 mg PO BID [facility] Last Admin: 10/14/18 09:02 Dose: 6.25 mg Dextrose/Water (Dextrose 50%) 25 gm SLOW IVP PRN PRN PRN Reason: Hypoglycemia Enoxaparin Sodium (Lovenox) 40 mg SC 0900 [facility] Last Admin: 10/14/18 09:02 Dose: 40 mg Glipizide (Glucotrol) 5 mg PO BID-[facility] Glucagon (Glucagon) 1 mg IM PRN PRN PRN Reason: Hypoglycemia Hydralazine HCl (Apresoline) 10 mg SLOW IVP Q4H PRN PRN Reason: BP > 220/110 Dextrose/Water (D5w) 1,000 mls @ 0 mls/hr IV .Q0M PRN PRN Reason: Hypoglycemia Insulin Glargine 10 units/ (Miscellaneous Medication) 0.1 mls @ 0 mls/hr SC QAM [facility] Last Admin: 10/14/18 09:05 Dose: 0.1 mls Lactated Ringer's (Lactated Ringer's) 1,000 mls @ 70 mls/hr IV .[id number] [facility] Last Admin: 10/14/18 04:51 Dose: 1,000 mls Insulin Human Lispro (Humalog) 0 units SC .MODERATE SLIDING SC PRN PRN Reason: Moderate Correctional Scale Last Admin: 10/14/18 06:30 Dose: 10 unit Labetalol HCl (Normodyne) 20 mg SLOW IVP Q1H PRN PRN Reason: BP > 220/110 Ondansetron HCl (Zofran) 4 mg IVP Q6H PRN PRN Reason: Nausea/Vomiting Pantoprazole Sodium (Protonix) 40 mg PER TUBE DAILY [facility] Last Admin: 10/14/18 09:02 Dose: 40 mg Sodium Bicarbonate (Bicarbonate, Sodium) 650 mg PER TUBE .PER PROTOCOL PRN PRN Reason: ENTERAL TUBE OCCLUSION Sodium Chloride (Flush - Normal Saline) 10 ml IVF PRN PRN PRN Reason: Saline Flush Last Admin: 10/11/18 08:33 Dose: 10 ml
--- NOTE | 2018-10-14 12:21 | PRG ---
DATE OF SERVICE: 10/14/2018 REASON FOR CONSULTATION: Dysphagia, status post percutaneous gastrostomy tube placement. SUBJECTIVE: Overnight, the patient had increased abdominal pain centered primarily around the PEG tube stomal site with the infusion of any increased tube feeds and was not able to tolerate more than one can at a time. This morning, he also continues to state that this abdominal pain persists. He had been given some pain medication overnight that did help somewhat, but states that the pain was 10/10 with the instillation of any tube feeds. Currently, he denies any nausea, vomiting, fevers, chills, hematemesis, melena, or hematochezia. OBJECTIVE: VITAL SIGNS: Temperature 99.3, pulse 95, blood pressure 125/88, respiratory rate 20, saturating 98% on room air. GENERAL: The patient is lying in bed, in no acute distress. Alert and oriented x4. CARDIOVASCULAR: Regular rate and rhythm. RESPIRATORY: Clear to auscultation bilaterally. ABDOMEN: Normoactive bowel sounds, soft, nondistended. Tenderness to palpation around the PEG tube stoma site that was somewhat tight up against the skin, loosening of the external bumper, yielded some relief in abdominal pain. EXTREMITIES: No cyanosis, clubbing, or edema. LABORATORY DATA: Chemistry with a sodium of 133, potassium 3.8, chloride 105, CO2 of 20, BUN 29, creatinine 1.64, glucose 357. IMAGING DATA: The patient underwent EGD with PEG tube placement on October 13, 2018 with successful placement of a [employer] 20-[place]ican percutaneous gastrostomy tube. No complications were noted during the procedure. ASSESSMENT AND PLAN: The patient is a 53-year-old male with past medical history of diabetes, hypertension, alcohol, and tobacco abuse, presenting with an acute middle cerebral artery infarction and resultant oropharyngeal dysphagia necessitating percutaneous gastrostomy tube placement. Dysphagia. The patient initially presented with acute onset of left facial drooping and drooling with imaging findings consistent with a middle cerebral artery cerebrovascular accident. Swallow studies performed by the speech pathologist showed significant oropharyngeal dysphagia with gross aspiration necessitating the placement of a PEG tube for nutritional purposes. He underwent EGD with PEG tube placement on October 13, 2018 with the placement of a [employer] 20-Mexican percutaneous gastrostomy tube placed with no perioperative complications. However, with attempts to advance the patient's tube feeds, he experienced sudden increase in abdominal pain that was 10/10, concerning for possible complication for the procedure. Upon evaluation this morning, the external bumper was somewhat tight against the skin and could potentially generate pain if tied down too tightly. I retracted the external bumper approximately 0.5 cm with maintaining approximately 1 cm distance between the external bumper and the skin, which did alleviate the pain somewhat. RECOMMENDATIONS: 1. We would continue the patient on n.p.o. status given the evidence of karyn aspiration on the swallow studies. 2. We would re-attempt to start the patient on tube feeds and advance as tolerated. 3. Pain control per Primary Team. We will continue to follow while the patient is still in the hospital. Please call with any questions. Job ID: [id number]
[2018-10-14 15:46] VITALS: BMI 17.1
[2018-10-14] MEDS ORDERED: Morphine 2 MG/ML SYRINGE SLOW IVP PRN (15:46)
[2018-10-14] MEDS ORDERED: Ibuprofen 200 MG TAB PO PRN (15:46)
[2018-10-14] MEDS: glipiZIDE 5 MG TAB PO SCH (16:09)
[2018-10-14] MEDS: Atorvastatin Calcium 40 MG TAB PO SCH (20:58)
[2018-10-15] MEDS: Lactated Ringer's 1,000 ML IV SCH (04:44)
[2018-10-15 08:56] LABS: Anion Gap 14 mmol/L (10-20); BUN (Urea Nitrogen) 24 mg/dL (8.4-25.7); Calc. Creatinine Clearance 45 mL/min (70-130); Calcium 9.4 mg/dL (7.8-10.44); Carbon Dioxide 21 mmol/L (22-29); Chloride 107 mmol/L (98-107); Estimated GFR-MDRD 55; Glucose 139 mg/dL (70-105); Potassium 4.1 mmol/L (3.5-5.1); Sodium 138 mmol/L (136-145)
[2018-10-15] MEDS: Carvedilol 6.25 MG TAB PO SCH ×2 (09:47→21:03)
[2018-10-15] MEDS: glipiZIDE 5 MG TAB PO SCH ×2 (09:47→17:04)
[2018-10-15] MEDS: Furosemide 20 MG TAB PER TUBE SCH (09:48)
[2018-10-15] MEDS: Pantoprazole 40 MG GRANULES PACKET PER TUBE SCH (09:48)
[2018-10-15] MEDS: Losartan 25 MG TAB PO SCH (09:48)
[2018-10-15] MEDS: Insulin Glargine 10 UNITS in Pre-Filled Syringe 1 EACH SC SCH (09:56)
[2018-10-15] MEDS ORDERED: Ketorolac Tromethamine 30 MG/ML VIAL IVP PRN (09:59)
[2018-10-15] MEDS: Enoxaparin Sodium 40 MG/0.4 ML SYRINGE SC SCH (10:04)
--- NOTE | 2018-10-15 10:13 | PDOC.PN ---
- Subjective Encounter Start Date: 10/15/18 Encounter Start Time: 09:15 Subjective: c/o abd pain upon feeding via peg/colicky -: couldn't sleep last night -: no sob or chest pain - Objective Resuscitation Status - Order Detail: 10/10/18 15:28 Resuscitation Status Routine Resuscitation Status: FULL: Full Resuscitation MAR Reviewed: Yes Vital Signs & Weight: Vital Signs (12 hours) Temp Pulse Resp BP BP Pulse Ox 10/15/18 09:47 125/88 10/15/18 07:57 97.5 F L 91 18 128/71 98 10/15/18 04:00 97.9 F 84 19 109/63 98 10/15/18 00:00 98.3 F 81 18 110/65 98 Weight Admit Weight 113 lb 1.6 oz Weight 112 lb 6.4 oz I&O: 10/14/18 10/15/18 10/16/18 06:59 06:59 06:59 Intake Total 1260 2078 Output Total 625 Balance 1260 1453 Result Diagrams: 10/11/18 05:19 10/15/18 07:23 Additional Labs: Accuchecks 10/15/18 10/15/18 10/14/18 06:13 00:05 18:51 POC Glucose 128 H 86 216 H 10/14/18 12:17 POC Glucose 196 H Phys Exam - Physical Examination HEENT: PERRLA, sclera anicteric Neck: no JVD, supple Respiratory: no wheezing, no rales Cardiovascular: RRR, no significant murmur Gastrointestinal: soft, no distention, positive bowel sounds no guarding or rigidity, peg+ Musculoskeletal: no edema, pulses present aphasia, dysphagia Psychiatric: normal affect, A&O x 3 Dx/Plan (1) Acute CVA (cerebrovascular accident) Code(s): I63.9 - CEREBRAL INFARCTION, UNSPECIFIED Status: Acute (2) Hoarseness Status: Acute (3) CHF exacerbation Code(s): I50.9 - HEART FAILURE, UNSPECIFIED Status: Acute Qualifiers: Heart failure type: systolic Qualified Code(s): I50.23 - Acute on chronic systolic (congestive) heart failure Comment: ef of 15% (4) Cardiomyopathy Code(s): I42.9 - CARDIOMYOPATHY, UNSPECIFIED Status: Suspected Qualifiers: Cardiomyopathy type: unspecified Qualified Code(s): I42.9 - Cardiomyopathy , unspecified (5) Alcohol abuse Code(s): F10.10 - ALCOHOL ABUSE, UNCOMPLICATED Status: Chronic (6) Tobacco abuse Code(s): Z72.0 - TOBACCO USE Status: Chronic (7) Dyslipidemia Code(s): E78.5 - HYPERLIPIDEMIA, UNSPECIFIED Status: Acute (8) HTN (hypertension) Code(s): I10 - ESSENTIAL (PRIMARY) HYPERTENSION Status: Chronic Qualifiers: Hypertension type: essential hypertension Qualified Code(s): I10 - Essential (primary) hypertension (9) Dysphagia Code(s): R13.10 - DYSPHAGIA, UNSPECIFIED Status: Acute Qualifiers: Dysphagia type: unspecified Qualified Code(s): R13.10 - Dysphagia, unspecified Comment: s/p peg, sec to cva (10) DM type 2 (diabetes mellitus, type 2) Status: Chronic Qualifiers: Diabetes mellitus nursing home insulin use: without assistant terminal manager use Diabetes mellitus complication status: with unspecified complications Qualified Code(s) : E11.8 - Type 2 diabetes mellitus with unspecified complications (11) FREDI (acute kidney injury) Code(s): N17.9 - ACUTE KIDNEY FAILURE, UNSPECIFIED Status: Acute Comment: sec to diuresis on top of likely ckd2-3 plus contrast, is resolving - Plan is going for CT abd due to pain post peg feedings -: add cozaar to coreg, renal function is almost at baseline -: will have life vest likely today -: dc plan when abd pain resolves and tolerates feeding -: will need outp speech therapy f/u, cardio f/u * . Review of Systems - Medications/Allergies Allergies/Adverse Reactions: Allergies Allergy/AdvReac Type Severity Reaction Status Date / Time Penicillins Allergy Verified 10/10/18 16:42 Medications: Current Medications Acetaminophen (Tylenol) 650 mg PO Q4H PRN PRN Reason: Headache/Fever/Mild Pain (1-3) Last Admin: 10/14/18 09:17 Dose: 650 mg Acetaminophen (Tylenol) 650 mg MD Q4H PRN PRN Reason: Headache/Fever/Mild Pain (1-3) Albuterol/Ipratropium (Duoneb) 3 ml NEB Q4H PRN PRN Reason: Dyspnea/Wheezing/SOB Lipase/Protease/Amylase (Bhupinder Cordero 15181) 1 cap FS .PER PROTOCOL PRN PRN Reason: TUBE OCCLUSION PROTOCOL Aspirin (Aspirin Chewable) 81 mg PO DAILY [facility] Last Admin: 10/15/18 09:47 Dose: Not Given Atorvastatin Calcium (Lipitor) 40 mg PO HS [facility] Last Admin: 10/14/18 20:58 Dose: 40 mg Carvedilol (Coreg) 6.25 mg PO BID [facility] Last Admin: 10/15/18 09:47 Dose: Not Given Dextrose/Water (Dextrose 50%) 25 gm SLOW IVP PRN PRN PRN Reason: Hypoglycemia Enoxaparin Sodium (Lovenox) 40 mg SC 0900 [facility] Last Admin: 10/15/18 10:04 Dose: 40 mg Furosemide (Lasix) 20 mg PER TUBE DAILY [facility] Last Admin: 10/15/18 09:48 Dose: Not Given Glipizide (Glucotrol) 5 mg PO BID-[facility] Last Admin: 10/15/18 09:47 Dose: Not Given Glucagon (Glucagon) 1 mg IM PRN PRN PRN Reason: Hypoglycemia Hydralazine HCl (Apresoline) 10 mg SLOW IVP Q4H PRN PRN Reason: BP > 220/110 Dextrose/Water (D5w) 1,000 mls @ 0 mls/hr IV .Q0M PRN PRN Reason: Hypoglycemia Insulin Glargine 10 units/ (Miscellaneous Medication) 0.1 mls @ 0 mls/hr SC QAM [facility] Last Admin: 10/15/18 09:56 Dose: Not Given Ibuprofen (Motrin) 400 mg PO Q8H PRN PRN Reason: Pain Last Admin: 10/14/18 16:14 Dose: 400 mg Insulin Human Lispro (Humalog) 0 units SC .MODERATE SLIDING SC PRN PRN Reason: Moderate Correctional Scale Last Admin: 10/14/18 18:52 Dose: 4 unit Ketorolac Tromethamine (Toradol) 15 mg IVP Q6H PRN PRN Reason: SEVERE PAIN Stop: 10/20/18 10:00 Labetalol HCl (Normodyne) 20 mg SLOW IVP Q1H PRN PRN Reason: BP > 220/110 Losartan Potassium (Cozaar) 25 mg PO DAILY [facility] Last Admin: 10/15/18 09:48 Dose: Not Given Morphine Sulfate (Morphine) 2 mg SLOW IVP Q4H PRN PRN Reason: Chest Pain/BP Elevations Last Admin: 10/14/18 22:54 Dose: 2 mg Ondansetron HCl (Zofran) 4 mg IVP Q6H PRN PRN Reason: Nausea/Vomiting Pantoprazole Sodium (Protonix) 40 mg PER TUBE DAILY [facility] Last Admin: 10/15/18 09:48 Dose: Not Given Sodium Bicarbonate (Bicarbonate, Sodium) 650 mg PER TUBE .PER PROTOCOL PRN PRN Reason: ENTERAL TUBE OCCLUSION Sodium Chloride (Flush - Normal Saline) 10 ml IVF PRN PRN PRN Reason: Saline Flush Last Admin: 10/11/18 08:33 Dose: 10 ml
--- NOTE | 2018-10-15 11:39 | CT ---
CT ABDOMEN AND PELVIS WITH CONTRAST: Technique: Multiple contiguous axial images were obtained through the abdomen and pelvis with IV enha ncement. Oral contrast was administered. Indications: Abdominal pain. Post PEG tube placement. FINDINGS: Lung bases are clear. Liver, spleen, and pancreas unremarkable. Adrenal glands and kidneys unremarkable. Urinary bladder is unremarkable. The stomach is nondistended. A PEG tube is identified and the bulb of the PEG tube appears adequately positioned within the stomach. Small bowel is not opacified and not well evaluated. Very little intr aabdominal fat is present and the small bowel loops cannot be well differentiated. No evidence of sma ll bowel dilation or obstruction. There is contrast in the colon and there is scattered stool throughout the colon. There is no evidenc e of extraluminal fluid or abscess collection. The aorta is normal caliber. IMPRESSION: 1. Lack of small bowel opacification limits evaluation of the small bowel. There is no evidence of sm all bowel dilatation or obstruction. No acute process identified. POS: [facility]
[2018-10-15] MEDS: HumaLOG 300 UNITS/3 ML VIAL SC PRN (18:52)
--- NOTE | 2018-10-15 19:24 | PRG ---
DATE OF SERVICE: 10/15/2018 REASON FOR CONSULTATION: Dysphagia, status post percutaneous gastrostomy tube placement. SUBJECTIVE: Last night, the patient exhibited increasing abdominal pain with the installation of tube feeds that was only moderately controlled with current pain medication regimen. Today, further attempts to administer any medications and/or tube feeds resulted in increasing abdominal pain approximately 60 to 90 minutes after installation. Upon evaluating the patient later tonight with a slower rate of infusion, he has been able to tolerate at least thus far. CT of the abdomen and pelvis was obtained earlier today to evaluate for any postoperative complications. Currently, he denies any nausea, vomiting, fevers, chills, GI bleeding, with minimal abdominal pain. He does continue to have mild oozing of blood around the PEG tube site, but nothing substantial. OBJECTIVE: VITAL SIGNS: Temperature 97.4, pulse 87, blood pressure 138/96, respiratory rate 12, saturating 98% on room air. GENERAL: The patient is lying in bed, in no acute distress. Alert and oriented x4. CARDIOVASCULAR: Regular rate and rhythm. RESPIRATORY: Clear to auscultation bilaterally. ABDOMEN: Normoactive bowel sounds. Soft, nondistended. Tenderness to palpation around the PEG tube stoma site as well as within the periumbilical region. EXTREMITIES: No cyanosis, clubbing, or edema. LABORATORY DATA: Chemistry with a sodium of 138, potassium 4.1, chloride 107, CO2 of 21, BUN 24, creatinine 1.35, glucose 139. IMAGING DATA: CT of the abdomen and pelvis was obtained on October 15, 2018, which showed no evidence of small bowel dilatation or obstruction. The PEG tube was identified with the bulb of the PEG tube appearing in adequate position within the stomach, although the small bowel is not opacified or well evaluated. There was no evidence of extraluminal fluid or abscess collection. ASSESSMENT AND PLAN: 1. The patient is a 53-year-old male with past medical history of diabetes, hypertension, alcohol abuse, and tobacco abuse, presenting with acute middle cerebral artery infarction and resultant oropharyngeal dysphagia, now status post PEG tube placement. 2. Dysphagia. 3. The patient initially presented with acute onset of left facial drooping and drooling with imaging findings consistent with middle cerebral artery cerebrovascular accident. Swallow studies and modified barium swallow study performed by speech pathology and radiology services showed gross aspiration necessitating the placement of PEG tube. He underwent EGD with PEG tube placement on October 13, 2018 with the placement of a [employer] 20-[place] percutaneous gastrostomy tube with no immediate perioperative complications. However, over the last 24 hours, he has exhibited increased abdominal pain approximately 60 to 90 minutes after the instillation of either tube feeds or medications both. This pain is characterized as a gripping/pressure type sensation, will radiate to the periumbilical region and reach a severity of 10/10. However, with slowing down his tube feeds tonight, he has not exhibited the abdominal pain indicating a possible intestinal spasm at the origin of his abdominal pain. RECOMMENDATIONS: 1. We would reattempt at tube feeds with slowed rate and assess for patient's tolerance and advance as tolerated. 2. Pain control per primary team. However, I will add dicyclomine 10 mg four times daily as needed for intestinal spasm. We will continue to follow while the patient is still in the hospital. Please call with any questions. Job ID: [id number]
[2018-10-15] MEDS: Dicyclomine 10 MG/5 ML UDCUP PO PRN (21:03)
[2018-10-15] MEDS: Atorvastatin Calcium 40 MG TAB PO SCH (21:03)
[2018-10-16] MEDS: HumaLOG 300 UNITS/3 ML VIAL SC PRN ×3 (01:08→18:09)
[2018-10-16] MEDS: Carvedilol 6.25 MG TAB PO SCH ×2 (08:25→20:48)
[2018-10-16] MEDS: Losartan 25 MG TAB PO SCH (08:25)
[2018-10-16] MEDS: Pantoprazole 40 MG GRANULES PACKET PER TUBE SCH (08:25)
[2018-10-16] MEDS: Furosemide 20 MG TAB PER TUBE SCH (08:25)
[2018-10-16] MEDS: Insulin Glargine 10 UNITS in Pre-Filled Syringe 1 EACH SC SCH (08:26)
[2018-10-16] MEDS: glipiZIDE 5 MG TAB PO SCH ×2 (08:26→18:08)
[2018-10-16] MEDS: Enoxaparin Sodium 40 MG/0.4 ML SYRINGE SC SCH (08:26)
[2018-10-16] MEDS: Dicyclomine 10 MG/5 ML UDCUP PO PRN ×3 (08:27→20:53)
[2018-10-16 09:22] LABS: #Eosinphils 0.2 thou/uL (0.0-0.7); #Lymphocytes 1.2 thou/uL (1.20-3.40); #Monocytes 0.6 thou/uL (0.11-0.59); #Neutrophils 6.5 thou/uL (1.40-6.50); %Basophils 0.5 % (0.0-1.0); %Eosinophils 2.1 % (0.0-10.0); %Lymphocytes 13.9 % (21.0-51.0); %Monocytes 6.7 % (0.0-10.0); %Neutrophils 76.8 % (42.0-75.0); Hemoglobin 12.9 g/dL (14.0-18.0); Mean Corpuscular HGB CONC 33.5 g/dL (32.0-36.0); Mean Corpuscular Hemoglobin 31.5 pg (27.0-31.0); Mean Corpuscular Volume 94.1 fL (78.0-98.0); Mean Platelet Volume 8.8 fL (7.4-10.4); Platelet Count 261 thou/uL (130-400); RBC Distribution Width 11.4 % (11.5-14.5); Red Blood Cell (RBC) Count 4.09 mill/uL (4.70-6.10); White Blood Cell (WBC) Count 8.4 thou/uL (4.8-10.8)
[2018-10-16 09:39] LABS: Anion Gap 15 mmol/L (10-20); BUN (Urea Nitrogen) 28 mg/dL (8.4-25.7); Calc. Creatinine Clearance 37 mL/min (70-130); Calcium 9.5 mg/dL (7.8-10.44); Carbon Dioxide 22 mmol/L (22-29); Chloride 104 mmol/L (98-107); Estimated GFR-MDRD 44; Glucose 217 mg/dL (70-105); Sodium 137 mmol/L (136-145)
[2018-10-16] MEDS ORDERED: Bisacodyl 10 MG SUPP PR PRN (14:45)
--- NOTE | 2018-10-16 18:48 | PRG ---
DATE OF SERVICE: 10/16/2018 REASON FOR CONSULTATION: Dysphagia, status post percutaneous gastrostomy tube placement. SUBJECTIVE: The patient did experience significant increased abdominal pain with the installation of either medications or tube feeds yesterday afternoon; however with restarting tube feeds yesterday evening at a significantly reduced rate, he experienced no additional abdominal pain. Today, he had been able to tolerate 2 cans thus far, again with only slight twinges of abdominal pain nowhere near as severe as it was yesterday. Currently, he denies any nausea, vomiting, fevers, chills, or GI bleeding with minimal abdominal pain. OBJECTIVE: VITAL SIGNS: Temperature 97.9, pulse 84, blood pressure 120/69, respiratory rate 16, and saturating 97% on room air. GENERAL: The patient is lying in bed, in no acute distress. Alert and oriented x4. CARDIOVASCULAR: Regular rate and rhythm. RESPIRATORY: Clear to auscultation bilaterally. ABDOMEN: Normoactive bowel sounds. Soft, nondistended. Mild tenderness to palpation around the PEG tube stoma site, but no significant erythema or skin breakdown at the PEG tube ostomy. EXTREMITIES: No cyanosis, clubbing, or edema. LABORATORY DATA: CBC with a white blood cell count of 8.4, hemoglobin 12.9, hematocrit 38.5, and platelets 261. Chemistry with a sodium of 137, potassium 4, chloride 104, CO2 of 22, BUN 28, creatinine 1.65, and glucose 217. IMAGING DATA: No current GI imaging is available for review. ASSESSMENT AND PLAN: The patient is a 53-year-old male with past medical history of diabetes, hypertension, alcohol abuse, tobacco abuse, and new diagnosis of acute middle cerebral artery infarction with resultant oropharyngeal dysphagia and aspiration, now status post PEG tube placement. Dysphagia: The patient initially presented with acute onset of left facial drooping and drooling with imaging on admission consistent with a middle cerebral artery infarction. Swallow studies in the post stroke period showed gross aspiration, for which he underwent a PEG tube placement on October 13, 2018. After placement of the tube, he did experience significant increased abdominal pain with installation of any medications or tube feeds, but with the institution of decreasing the rate at which feeds/medications are instilled. The patient has been able to tolerate this very well. Currently without any additional abdominal pain and has been able to tolerate approximately 2 to 3 cans of Ensure today. He has also been taking the Bentyl as needed for intestinal spasm, which has helped somewhat as well. RECOMMENDATIONS: 1. We would continue with tube feeds and advance as tolerated, but can proceed at a slowed rate given the patient's pain in the past. 2. Can continue with dicyclomine 10 mg four times daily as needed for intestinal spasm/pain. Given his tolerance of tube feeds, I would anticipate discharge to home soon, which is okay from a GI standpoint. We will sign off at this time. Please call with any questions. Job ID: [id number]
[2018-10-16] MEDS: Atorvastatin Calcium 40 MG TAB PO SCH (20:48)
[2018-10-17] MEDS: HumaLOG 300 UNITS/3 ML VIAL SC PRN ×2 (00:13→12:09)
--- NOTE | 2018-10-17 06:10 | PDOC.PN ---
- Subjective Encounter Start Date: 10/16/18 Encounter Start Time: 08:45 Subjective: pt up in bed tolerating his tube feeds currently - Objective Resuscitation Status - Order Detail: 10/10/18 15:28 Resuscitation Status Routine Resuscitation Status: FULL: Full Resuscitation Vital Signs & Weight: Vital Signs (12 hours) Temp Pulse Resp BP Pulse Ox 10/17/18 04:00 97.8 F 80 20 113/76 98 10/17/18 00:02 98.3 F 77 16 110/75 100 10/16/18 20:00 98.3 F 84 16 104/68 99 Weight Admit Weight 113 lb 1.6 oz Weight 112 lb 6.4 oz I&O: 10/15/18 10/16/18 10/17/18 06:59 06:59 06:59 Intake Total 2078 373 1060 Output Total 625 700 Balance 1453 -327 1060 Result Diagrams: 10/16/18 08:56 10/16/18 08:56 Additional Labs: Accuchecks 10/17/18 10/16/18 10/16/18 00:06 18:08 11:53 POC Glucose 326 H 336 H 292 H 10/16/18 06:37 POC Glucose 219 H Phys Exam - Physical Examination Neck: no nodes, no JVD, supple, full ROM Respiratory: no wheezing, no rales, no rhonchi, wheezing present, clear to auscultation bilateral Cardiovascular: RRR, no significant murmur, no rub, gallop, irregular Gastrointestinal: soft, positive bowel sounds Musculoskeletal: no edema, pulses present, edema present Dx/Plan (1) Acute CVA (cerebrovascular accident) Code(s): I63.9 - CEREBRAL INFARCTION, UNSPECIFIED Status: Acute (2) Dysphagia Code(s): R13.10 - DYSPHAGIA, UNSPECIFIED Status: Acute Qualifiers: Dysphagia type: unspecified Qualified Code(s): R13.10 - Dysphagia, unspecified Comment: s/p peg, sec to cva (3) Hoarseness Status: Acute (4) DM type 2 (diabetes mellitus, type 2) Status: Chronic Qualifiers: Diabetes mellitus regional intermodal truck driver insulin use: without regional intermodal truck driver use Diabetes mellitus complication status: with unspecified complications Qualified Code(s) : E11.8 - Type 2 diabetes mellitus with unspecified complications (5) HTN (hypertension) Code(s): I10 - ESSENTIAL (PRIMARY) HYPERTENSION Status: Chronic Qualifiers: Hypertension type: essential hypertension Qualified Code(s): I10 - Essential (primary) hypertension - Plan pt states he is tolerating his tube feeds and premedication with -: antispasm helps. will continue to monitor -: pt's life vest at bedside -: continue asa/statin * . Review of Systems - Review of Systems Respiratory: negative: Cough, Dry, Shortness of Breath, Hemoptysis, SOB with Excertion, Pleuritic Pain, Sputum, Wheezing Cardiovascular: negative: chest pain, palpitations, orthopnea, paroxysmal nocturnal dyspnea, edema, light headedness, other Gastrointestinal: negative: Nausea, Vomiting, Abdominal Pain, Diarrhea, Constipation, Melena, Hematochezia, Other Genitourinary: negative: Dysuria, Frequency, Incontinence, Hematuria, Retention , Other - Medications/Allergies Allergies/Adverse Reactions: Allergies Allergy/AdvReac Type Severity Reaction Status Date / Time Penicillins Allergy Verified 10/10/18 16:42 Medications: Current Medications Acetaminophen (Tylenol) 650 mg PO Q4H PRN PRN Reason: Headache/Fever/Mild Pain (1-3) Last Admin: 10/14/18 09:17 Dose: 650 mg Acetaminophen (Tylenol) 650 mg VT Q4H PRN PRN Reason: Headache/Fever/Mild Pain (1-3) Albuterol/Ipratropium (Duoneb) 3 ml NEB Q4H PRN PRN Reason: Dyspnea/Wheezing/SOB Lipase/Protease/Amylase (Bhupinder Cordero 40488) 1 cap FS .PER PROTOCOL PRN PRN Reason: TUBE OCCLUSION PROTOCOL Aspirin (Aspirin Chewable) 81 mg PO DAILY [facility] Last Admin: 10/16/18 08:25 Dose: 81 mg Atorvastatin Calcium (Lipitor) 40 mg PO HS [facility] Last Admin: 10/16/18 20:48 Dose: 40 mg Bisacodyl (Dulcolax) 10 mg VT ONE PRN PRN Reason: Constipation Stop: 10/17/18 14:46 Carvedilol (Coreg) 6.25 mg PO BID [facility] Last Admin: 10/16/18 20:48 Dose: 6.25 mg Dextrose/Water (Dextrose 50%) 25 gm SLOW IVP PRN PRN PRN Reason: Hypoglycemia Dicyclomine HCl (Bentyl) 10 mg PO QID PRN PRN Reason: Pain Last Admin: 10/16/18 20:53 Dose: 10 mg Enoxaparin Sodium (Lovenox) 40 mg SC 0900 [facility] Last Admin: 10/16/18 08:26 Dose: 40 mg Furosemide (Lasix) 20 mg PER TUBE DAILY [facility] Last Admin: 10/16/18 08:25 Dose: 20 mg Glipizide (Glucotrol) 5 mg PO BID-AC [facility] Last Admin: 10/16/18 18:08 Dose: 5 mg Glucagon (Glucagon) 1 mg IM PRN PRN PRN Reason: Hypoglycemia Hydralazine HCl (Apresoline) 10 mg SLOW IVP Q4H PRN PRN Reason: BP > 220/110 Dextrose/Water (D5w) 1,000 mls @ 0 mls/hr IV .Q0M PRN PRN Reason: Hypoglycemia Insulin Glargine 10 units/ (Miscellaneous Medication) 0.1 mls @ 0 mls/hr SC QAM [facility] Last Admin: 10/16/18 08:26 Dose: 0.1 mls Ibuprofen (Motrin) 400 mg PO Q8H PRN PRN Reason: Pain Last Admin: 10/14/18 16:14 Dose: 400 mg Insulin Human Lispro (Humalog) 0 units SC .MODERATE SLIDING SC PRN PRN Reason: Moderate Correctional Scale Last Admin: 10/17/18 00:13 Dose: 8 unit Ketorolac Tromethamine (Toradol) 15 mg IVP Q6H PRN PRN Reason: SEVERE PAIN Stop: 10/20/18 10:00 Last Admin: 10/15/18 15:02 Dose: 15 mg Labetalol HCl (Normodyne) 20 mg SLOW IVP Q1H PRN PRN Reason: BP > 220/110 Losartan Potassium (Cozaar) 25 mg PO DAILY [facility] Last Admin: 10/16/18 08:25 Dose: 25 mg Morphine Sulfate (Morphine) 2 mg SLOW IVP Q4H PRN PRN Reason: Chest Pain/BP Elevations Last Admin: 10/14/18 22:54 Dose: 2 mg Ondansetron HCl (Zofran) 4 mg IVP Q6H PRN PRN Reason: Nausea/Vomiting Pantoprazole Sodium (Protonix) 40 mg PER TUBE DAILY [facility] Last Admin: 10/16/18 08:25 Dose: 40 mg Sodium Bicarbonate (Bicarbonate, Sodium) 650 mg PER TUBE .PER PROTOCOL PRN PRN Reason: ENTERAL TUBE OCCLUSION Sodium Chloride (Flush - Normal Saline) 10 ml IVF PRN PRN PRN Reason: Saline Flush Last Admin: 10/11/18 08:33 Dose: 10 ml
--- NOTE | 2018-10-17 06:13 | PDOC.EVN ---
Event Note - Event Note Event Note: nurse called stating pt is still having abdomen cramping. will ask nutrition for possible different nutrition supplement vs consider slow continues feeds.
[2018-10-17] MEDS: Insulin Glargine 10 UNITS in Pre-Filled Syringe 1 EACH SC SCH (08:31)
[2018-10-17] MEDS: Dicyclomine 10 MG/5 ML UDCUP PO PRN (08:31)
[2018-10-17] MEDS: Furosemide 20 MG TAB PER TUBE SCH (08:32)
[2018-10-17] MEDS: Losartan 25 MG TAB PO SCH (08:32)
[2018-10-17] MEDS: Pantoprazole 40 MG GRANULES PACKET PER TUBE SCH (08:32)
[2018-10-17] MEDS: glipiZIDE 5 MG TAB PO SCH (08:32)
[2018-10-17] MEDS: Carvedilol 6.25 MG TAB PO SCH (08:32)
[2018-10-17] MEDS: Enoxaparin Sodium 40 MG/0.4 ML SYRINGE SC SCH (08:32)
[2018-10-17 09:59] LABS: Hemoglobin A1c 9.7 % (4.0-6.0)
[2018-10-17 15:45] VITALS: BP 115/81; TEMP 97.6
--- NOTE | 2018-10-18 07:18 | DIS ---
DATE OF ADMISSION: 10/10/2018 DATE OF DISCHARGE: 10/17/2018 DISCHARGE DIAGNOSES: As of the following; 1. Acute CVA. 2. Dysphagia. 3. Hoarseness. 4. Diabetes. 5. Hypertension. HOSPITAL COURSE: The patient is a very pleasant 53-year-old male who initially presented to the hospital for possible CVA. Per H and P, the patient stated that he was given Z-Chaitanya for respiratory infection from the 04 of October. The patient had traveled recently to [facility] vacationing with his friends, came back and started having some chest pain and palpitations. The patient also had some cough and shortness of breath prior to coming into the hospital. However, when he woke up on the day of admission around 0630 that morning, he was unable to speak and was drooling. At this time, the patient was brought into the hospital for further evaluation. The patient had a complete stroke workup including the CT angio that did not show any evidence of hemodynamically significant stenosis in the neck or the brain. He also had a V/Q scan that showed low probability for PE. He also was found to have elevated BNP of 2691. The patient at this time also had an echocardiogram which indicated an EF of 15% to 20%. The patient also had soft tissue neck CT given his low-profile hoarseness and smoking history. It did not indicate any evidence of any mass and no lymphadenopathy was noted, and the thyroid gland also appears to be stable. The patient also had a brain MRI, which indicated a small size acute right middle cerebral artery infarct. The patient was able to talk. However, he has severe dysphagia. He also had a speech modified barium swallow, which indicated that he had karyn aspiration. At this time, the patient underwent a PEG tube placement and was started on bolus feeds. The patient did have some abdominal pain during this bolus feeds. At this time, CT abdomen and pelvis was done to rule out any obstruction versus any abnormalities. There was no evidence of bowel dilation or obstruction. The patient's bolus feeds were changed from 1.5 to 1.2 Glucerna and also the patient was put on some Bentyl for cramping. The patient also was seen by GI. However, the patient's abdominal pain and cramping resolved. The patient also was able to have a normal bowel movement. The patient will be discharged home. He will follow up with his primary care doctor and also with Cardiology as outpatient. HOME MEDICATIONS: The patient's home medications are as of the following; he is on, 1. Glipizide 5 mg b.i.d. 2. Losartan 12.5 mg daily. 3. Lasix 20 mg daily. 4. Coreg 6.25 b.i.d. 5. Atorvastatin 40 mg at bedtime. 6. Aspirin 81 mg daily. 7. I have put him on insulin. His hemoglobin A1c was 9.5, 6 units b.i.d. The patient also has been instructed to buy a glucometer and use to check his blood sugars a.c. and at bedtime and also was educated that 70/30 also has a short acting, so make sure that he is bolus feeding himself. The patient will be discharged. Due to lack of insurance, Case Management is trying to prepare for this patient followups and also the patient will need a re-swallow eval. PHYSICAL EXAMINATION: VITAL SIGNS: On discharge, temperature 98.1, heart rate 76, respirations 16, 96% on room air, blood pressure of 96/52. GENERAL: He is awake, alert, and oriented x3. Does not appear in distress. CV: S1 and S2 present. No murmurs, rubs, or gallops. ABDOMEN: Soft and nontender. Bowel sounds present x2. He has a PEG tube. EXTREMITIES: No edema. Pedal pulses are present x2. FOLLOWUP: Again, he will be discharged home to follow up with his primary care doctor. This has been provided to the patient and also he will follow up with Cardiology on discharge. Job ID: [id number]
[2018-10-18] MEDS ORDERED: Losartan 25 MG TAB PO SCH (09:00)
== END 2018-10-17 18:46 | disposition home or self-care (01) | DRG 64 ==
LOC: ERS 12:18 → 2SE 15:07
PROVIDERS: ADMIT Internal Medicine; ATTEND Internal Medicine
PROC: 3E0234Z Introduction of Serum, Toxoid and Vaccine into Muscle, Percutaneous Approach (ICD-10-PCS; 2018-10-11)
PROC: 0DH68UZ Insertion of Feeding Device into Stomach, Via Natural or Artificial Opening Endoscopic (ICD-10-PCS; principal; 2018-10-13)
PROC: 3E0G76Z Introduction of Nutritional Substance into Upper GI, Via Natural or Artificial Opening (ICD-10-PCS; 2018-10-13)
DX: I63.411 Cerebral infarction due to embolism of right middle cerebral artery (principal); I50.23 Acute on chronic systolic (congestive) heart failure; I13.0 Hypertensive heart and chronic kidney disease with heart failure and stage 1 through stage 4 chronic kidney disease, or unspecified chronic kidney disease; N17.9 Acute kidney failure, unspecified; E44.0 Moderate protein-calorie malnutrition; Z68.1 Body mass index [BMI] 19.9 or less, adult; I42.9 Cardiomyopathy, unspecified; Z79.84 Long term (current) use of oral hypoglycemic drugs; Z88.0 Allergy status to penicillin; F17.210 Nicotine dependence, cigarettes, uncomplicated; F10.10 Alcohol abuse, uncomplicated; Z79.82 Long term (current) use of aspirin; R29.810 Facial weakness; R13.12 Dysphagia, oropharyngeal phase; Z79.02 Long term (current) use of antithrombotics/antiplatelets; Z23 Encounter for immunization; E78.5 Hyperlipidemia, unspecified; G51.0 Bell's palsy; N18.3 Chronic kidney disease, stage 3 (moderate); I69.391 Dysphagia following cerebral infarction; R40.2412 Glasgow coma scale score 13-15, at arrival to emergency department
CPT/HCPCS: 36415; 36416; 70491; 70551; 71260; 74177; 74230; 78582; 80048; 80061; 80306; 82553; 83036; 84443; 84550; 85025; 85652; 86038; 86225; 86780; 87633; 90471; 90686; 90732; 93005; 93306; 93798; 94640; 94760; 96372; A9540; A9558; G0008; G0009; G8978-GP-CH; G8979-GP-CH; G8980-GP-CH; G8987-GO-CI; G8988-GO-CI; G8989-GO-CI; G8996-GN-CM; G8996-GN-CN; G8997-GN-CK; G8997-GN-CL; J1650; J1885; J1940; J1956; J2270; J2704; J3411; J7042; J7620; S0028

== ENCOUNTER 2018-12-05 10:00 | Outpatient (CLI) | payer OTHER | END 2018-12-05 10:01 | disposition home or self-care (01) | PROVIDERS: ATTEND Internal Medicine | DX: I69.391 Dysphagia following cerebral infarction (principal); R13.12 Dysphagia, oropharyngeal phase | CPT/HCPCS: 74230 ==